=== PATIENT | female | born 1970 | race Caucasian/White ===

== ENCOUNTER 2018-07-11 04:03 | Inpatient (IN) ==
[2018-07-11] MEDS ORDERED: Acetaminophen 325 MG TABLET PO PRN (06:14)
[2018-07-11] MEDS ORDERED: *HR* OxyCODONE Immed Rel 5 MG TABLET PO PRN (06:14)
[2018-07-11] MEDS ORDERED: Naloxone 0.4 MG/ML INJ IVP PRN ×2 (06:14→07:54)
[2018-07-11] MEDS ORDERED: Ondansetron 4 MG/2 ML VIAL IVP PRN (06:21)
--- NOTE | 2018-07-11 06:30 | Internal Med History&Physical ---
<Stan Luque - Last Filed: 07/11/18 06:22> Date of Encounter: 07/11/18 Time of Encounter: 06:22 Internal Medicine - H&P: HPI Chief complaint: Abdominal pain Admitted From: Home Plans for Post Hospital Care: Home History of present illness: Ms. Roberts is a 47 year old female presented with chief complaint of abdominal pain. Patient was transferred from [facility]. Patient states her abdominal pain started 1 week ago and was located in the epigastric region and radiated to her back and laterally. Pain worse with cough and eating. Nothing improved pain. She had associated nausea and vomiting 3 couple days back. She reports her pain progressively worsened with sharp and unbearable especially presented to the ED. She has never had anything like this before. She denies fevers, chills, sick contacts, travel yellowing of skin, changes in stool color , consistency, changes in urine color. At [facility] patient was found to have pancreatitis, underwent CT of the abdomen which showed 2 new lesions in the liver. Patient had a CT abdomen pelvis 2 months ago for abdominal pain and at that time did not have these liver lesions. She was given antinausea, Toradol and IV fluids at [facility] before being transferred. She denies weight gain/ weight loss or history of cancer. She denies family history of cancer. Patient had cholecystectomy 20 years ago. Otherwise she denies any other abdominal surgeries. She is not up-to-date on her cancer screenings including mammograms, Pap smears. Patient's lipase was 893 with normal bilirubin. Alkaline phosphatase the case was 179 AST 50 2A located 70. She is normotensive, nontoxic tachycardic, afebrile. WBC within normal limits. Lactic acid 1.9. CT abdomen findings indicate a 5 cm mass in the right lobe and a 6 cm in the right/medial left lobe with normal bile ducts, normal pancreas. During my encounter patient says her nausea and abdominal pain has resolved. Past Med Surg Social Fam HX - Past Medical History Medical history: arthritis, GERD - Past Surgical History Surgical History: cholecystectomy - Social History Smoking Status: Current every day smoker Packs per day: One pack per day Smokeless Tobacco Status: No Alcohol use: none Drug use: none Occupational status: employed Current living situation: Home - Independent Activity Level: Independent ambulation - Family History Mother Hx Family Cardiac Disorders: Yes Internal Medicine - H&P: Meds No Known Home Drugs 07/11/18 [History] 3 Allergy/AdvReac Type Severity Reaction Status Date / Time Sulfa (Sulfonamide Allergy Severe Difficulty Verified 07/11/18 13:47 Antibiotics) Breathing Penicillins AdvReac Difficulty Verified 07/11/18 13:47 Breathing All Systems PM: A 10-system review of systems was performed and is negative for pertinent findings except as documented above in the HPI. Review of systems: Constitutional: Denies fever, chills HEENT: Denies headache, vision changes, neck pain, sore throat, rhinorrhea Heart: Denies chest pain palpitations Lungs: Denies shortness of breath cough Abdomen: Reports abdominal pain, nausea, vomiting. Denies diarrhea, constipation, change in stool color/consistency Back: Denies back pain Kidney: Reports dysuria, decreased urinary frequency denies hematuria Skin: Denies rash, lesions, jaundice Extremities: Denies swelling, pain Neuro: Denies numbness and tingling - Constitutional Vitals: Temp Pulse Resp BP Pulse Ox 98.5 F 86 16 121/85 95 07/11/18 06:15 07/11/18 06:15 07/11/18 06:15 07/11/18 06:15 07/11/18 06:15 Exam: General: Pleasant without distress HEENT: Head atraumatic, normocephalic, EOMI, PERRL, neck nontender to palpation , absent lymphadenopathy, Moist Mucous Membranes, scleral anicteric Heart: Regular rate and rhythm with no murmur Lungs: Clear to auscultation bilaterally Abdomen: Mild suprapubic tenderness, nondistended positive bowel sounds Skin: warm and dry, absent rash Extremities: Absent pedal edema, Neuro: Cranial nerves II through XII intact, UE and LE sensation equal bilaterally, UE and LEstrength 5/5, alert oriented 3, gait intact Vascular: Pedal and radial pulses 2 out of 4 - Assessment and plan (1) Pancreatitis Status: Acute Assessment and plan: 38-year-old female presented with chief complaint of Abdominal pain and pancreatitis lipase 836 Ct abdomen does not show evidence of pancreatitis but shows two large hepatic masses. she currently does not have abdominal pain or nausea. she is s/p jose a 20 years ago she denies alcohol use Plan: IVF, repeat lipase, amylase, lipid panel. Zofran for nausea. pain control. clear liquid diet. advance diet if tolerating. Qualifiers: Chronicity: acute Pancreatitis type: unspecified pancreatitis type Acute pancreatitis complication: unspecified Qualified Code(s): K85.90 - Acute pancreatitis without necrosis or infection, unspecified (2) Liver lesion Status: Acute Assessment and plan: patient has two hepatic lesions measuring 5m and 6m these were not present 2 months ago when she had ct abdomen pelvis for abdominal pain at [facility] she denies recent travel, sick contacts, weight loss, fever chills, changes in bowel movements. patient is not uptodate on her cancer screening: pap smear or mamogram patient is a smoker she will need further imaging: MRI abdomen, AFP and likely biopsy. (3) Tobacco abuse Status: Acute Assessment and plan: hx of tobacco abuse patient educated on smoking cessation (4) Dysuria Status: Acute Assessment and plan: patient complains of dysuria and urinary frequency reports this feels like UTI will sent urinalysis. she does not meet any sirs critera she has suprapubic pain on exam. - Time Spent With Patient Total time spent is greater than 50% in coordination of care (as documented) at patient's floor/unit and/or counseling patient: <Elle Ridley - Last Filed: 07/14/18 08:21> Date of Encounter: 07/11/18 Internal Medicine - H&P: HPI History of present illness: Ms. Roberts is a 47 year old female All Systems PM: A 10-system review of systems was performed and is negative for pertinent findings except as documented above in the HPI. - Constitutional Vitals: Temp Pulse Resp BP Pulse Ox 98.6 F 77 16 128/81 96 07/13/18 07:21 07/13/18 07:21 07/13/18 07:21 07/13/18 07:21 07/13/18 07:21 Internal Med - H&P Results - Labs CBC & Chem 7: 07/11/18 06:25 07/11/18 06:25 - Impressions ITS Impressions Abdomen MRI 07/11/18 06:55 IMPRESSION: 1. Several scattered circumscribed hepatic lesions largest 7 cm straddling segment 8 and segment 4A followed by 6 cm lesion in segment 6 inferiorly. The rest are several scattered lesions up to 3 cm in size in both right and left lobe more pronounced on the right. Most favored diagnosis is multiple hepatic adenomas. In this non cirrhotic liver the differential of hepatocellular carcinoma is less favored nonetheless six-month follow-up would be advised and additionally correlation with serial alpha-fetoprotein levels now, at 3 months and 6 months at the least is recommended. Adenomas greater than 5 cm at higher risk of degeneration into HCC. If alpha-fetoprotein levels are currently elevated biopsy would be advised. If AFP levels rise before 6 months then earlier imaging,would also be advised. 2. Diffuse hepatic steatosis. D/ / Toño Rodarte MD / Toño Rodarte MD Interpreting Provider: Toño Rodarte MD - Assessment and plan (1) Pancreatitis Status: Acute Qualifiers: Chronicity: acute Pancreatitis type: unspecified pancreatitis type Acute pancreatitis complication: unspecified Qualified Code(s): K85.90 - Acute pancreatitis without necrosis or infection, unspecified (2) Liver lesion Status: Acute (3) Tobacco abuse Status: Chronic - Time Spent With Patient Total time spent is greater than 50% in coordination of care (as documented) at patient's floor/unit and/or counseling patient: - Attending Attestation Patient seen and examined. Case discussed with resident. Agree with assessment and plan. Elevated lipase of over 800 though patient does not present with abdominal pain consistent with acute pancreatitis nor were imaging of the abdomen consistent with acute pancreatitis. However we will continue with aggressive hydration. Liver lesions concerning for malignancy. Requesting GI consult to see the patient.
[2018-07-11 06:42] LABS: Basophils # 0.1 K/mcL (0.0-0.2); Basophils % 0.7 %; Eosinophils # 0.4 K/mcL (0.0-0.6); Eosinophils % 3.8 %; Hematocrit 43.3 % (35.3-44.9); Hemoglobin 14.2 g/dL (11.5-15.4); Immature Granulocytes % 0.7 % (0-4); Lymphocytes # 2.9 K/mcL (0.6-4.6); Mean Corpuscular HGB Conc 32.8 g/dL (31.6-35.5); Mean Corpuscular Hemoglobin 29.8 pg (28.0-33.3); Mean Platelet Volume 11.4 fL (9.4-12.4); Monocytes # 0.6 K/mcL (0.0-1.3); Monocytes % 6.2 %; Neutrophils # 5.7 K/mcL (1.6-8.9); Platelet Count 304 K/mcL (140-400); Red Blood Count 4.76 M/mcL (3.82-4.97); Red Cell Distribution Width 13.5 % (11.5-14.5); Segmented Neutrophils % 58.6 %
[2018-07-11 06:47] LABS: INR 1.1; Prothrombin Time 12.1 Seconds (9.4-12.1)
[2018-07-11] MEDS ORDERED: Gadolinium Contrast Agent (WT Based) IV PRN (06:55)
[2018-07-11] MEDS: 0.9 % Sodium Chloride 1,000 ML IVC SCH ×2 (07:15→14:31)
[2018-07-11] MEDS: *HR* Heparin 5,000 UNIT/ML VIAL SQ SCH ×3 (07:15→20:51)
[2018-07-11 08:10] LABS: Bilirubin,Urine Negative (Negative); Blood,Urine Negative (Negative); Clarity,Urine Clear (Clear); Color,Urine Yellow (Yellow); Glucose,Urine (UA) Normal (Normal); Ketones,Urine Negative (Negative); Leukocyte Esterase,Urine Negative (Negative); Nitrite,Urine Negative (Negative); Protein,Urine 30 mg/dL (Neg-Trace); Specific Gravity,Urine > 1.030 (1.010-1.025); Urobilinogen,Urine Normal (Normal)
[2018-07-11 08:12] LABS: Bacteria,Urine Moderate per hpf (None-Few); Squamous Epithelial Cell,Urine Many per lpf (None-Few); WBC,Urine 50-100 per hpf (0-3)
[2018-07-11 08:22] LABS: Hyaline Casts,Urine None Seen per lpf (None-Few)
--- NOTE | 2018-07-11 09:09 | Internal Med Progress Note ---
<Bill Mcqueen S - Last Filed: 07/11/18 09:06> Hospitalist Progress Note - Encounter Date of Encounter: 07/11/18 Time of Encounter: 09:06 - Subjective Interval History: Ms Roberts is a 47o female with c/o bad pain -[facility] transfer -has been having abd pain 1 wk in duration, epigastric area with radiation to the back and down to her ray area -worse with eating -never has had this before At [facility] found to have pancreatitis -CT scan showed 2 lesions in the liver: 5 cm mass in the right lobe and a 6 cm in the right/medial left lobe with normal bile ducts, normal pancreas. -Lipase 893 -normal bilirubin -Alk phos 179, AST 50, ALT 70 -Lactic acid 1.9 At this time the pt has no complaints. She has mild epigastric pain but no N/V/D , chest pain, SOB. She is tolerating clear liquid diet. - Exam Vitals: Temp Pulse Resp BP Pulse Ox 98.5 F 86 16 121/85 95 07/11/18 06:15 07/11/18 06:15 07/11/18 06:15 07/11/18 06:15 07/11/18 07:15 Exam: General: Pleasant without distress HEENT: Head atraumatic, normocephalic, Heart: Regular rate and rhythm with no murmur Lungs: Clear to auscultation bilaterally Abdomen: Mild epigastric tenderness, nondistended positive bowel sounds, obese Skin: warm and dry, absent rash Extremities: Absent pedal edema, - Assessment and Plan (1) Pancreatitis Current Visit: Yes Status: Acute Assessment and Plan: 38-year-old female presented with chief complaint of abdominal pain and pancreatitis -lipase 836 -CT abdomen findings indicate a 5 cm mass in the right lobe and a 6 cm in the right/medial left lobe with normal bile ducts, normal pancreas Pt denies alcohol abuse -s/p cholecystectomy 20yrs ago -currently no nausea or vomiting at this time Plan: -continue 75cc/hr IV 0.9% NS -repeat lipase and amylase pending -lipid profile pending -zofran prn nausea -clear liquid diet, advance as tolerated -oxycodone 10mg PO q6hr prn pain -MRI for liver lesions (2) Liver lesion Current Visit: Yes Status: Acute Assessment and Plan: CT abdomen findings indicate a 5 cm mass in the right lobe and a 6 cm in the right/medial left lobe with normal bile ducts, normal pancreas -pt has CT 2 mos ago and at that time the lesions weren't present -not up to date on cancer screening --> hasn't had a pap smear in years, can't remember last mammogram -pt is a smoker -no family history of colon cancer Pt denies fevers, chills, weight loss or changes in bowel habits. -Hemoglobin is 14.2, MCV 91 Plan: -MRI abdomen -AFP pending -most likely will need biopsy as an outpatient (3) Tobacco abuse Current Visit: Yes Status: Chronic Assessment and Plan: hx of tobacco abuse patient educated on smoking cessation - Time Spent with Patient Total time spent is greater than 50% in coordination of care (as documented) at patient's floor/unit and/or counseling patient: less than 15 minutes Plan of Care Discussed with: patient Internal Medicine: Result - Labs CBC & Chem 7: 07/11/18 06:25 Labs: Short CBC 07/11/18 Range/Units 06:25 WBC 9.7 (4.3-11.1) K/mcL Hgb 14.2 (11.5-15.4) g/dL Hct 43.3 (35.3-44.9) % Plt Count 304 (140-400) K/mcL Neutrophils # 5.7 (1.6-8.9) K/mcL Urine 07/11/18 Range/Units 08:00 Urine Color Yellow (Yellow) Urine Clarity Clear (Clear) Urine pH 6.0 (5.0-8.0) pH Units Ur Specific [place] > 1.030 H (1.010-1.025) Urine Protein 30 H (Neg-Trace) mg/dL Urine Glucose (UA) Normal (Normal) mg/dL - ABG Interpretation ABG results: PT/INR, D-dimer PT 12.1 Seconds (9.4-12.1) 07/11/18 06:25 Consult Discharge Plan - Plan Referrals: Tyron Almanza MD [Primary Care Provider] - <Donny Anne - Last Filed: 07/11/18 12:32> Hospitalist Progress Note - Encounter Date of Encounter: 07/11/18 - Exam Vitals: Temp Pulse Resp BP Pulse Ox 98.7 F 86 18 169/78 95 07/11/18 12:00 07/11/18 12:00 07/11/18 12:00 07/11/18 12:00 07/11/18 12:00 - Assessment and Plan (1) Pancreatitis Current Visit: Yes Status: Acute (2) Liver lesion Current Visit: Yes Status: Acute (3) Tobacco abuse Current Visit: Yes Status: Chronic - Time Spent with Patient Total time spent is greater than 50% in coordination of care (as documented) at patient's floor/unit and/or counseling patient: Internal Medicine: Result - Labs CBC & Chem 7: 07/11/18 06:25 07/11/18 06:25 Labs: Short CBC 07/11/18 Range/Units 06:25 WBC 9.7 (4.3-11.1) K/mcL Hgb 14.2 (11.5-15.4) g/dL Hct 43.3 (35.3-44.9) % Plt Count 304 (140-400) K/mcL Neutrophils # 5.7 (1.6-8.9) K/mcL BMP 07/11/18 06:25 Sodium 136 Potassium 4.3 Chloride 105 Carbon Dioxide 21 L BUN 12 Creatinine 0.79 Glucose 169 H Calcium 8.8 Liver Function 07/11/18 Range/Units 06:25 Total Bilirubin 0.5 (0.3-1.0) mg/dL Direct Bilirubin 0.1 (0.0-0.2) mg/dL AST 29 (13-39) Units/L ALT 47 (7-52) Units/L Alkaline Phosphatase 139 H (34-104) Units/L Albumin 4.0 (3.5-5.7) g/dL Urine 07/11/18 Range/Units 08:00 Urine Color Yellow (Yellow) Urine Clarity Clear (Clear) Urine pH 6.0 (5.0-8.0) pH Units Ur Specific [place] > 1.030 H (1.010-1.025) Urine Protein 30 H (Neg-Trace) mg/dL Urine Glucose (UA) Normal (Normal) mg/dL - ABG Interpretation ABG results: PT/INR, D-dimer PT 12.1 Seconds (9.4-12.1) 07/11/18 06:25 - Attending Attestation I have seen and examined this patient independently. I have discussed with resident physician Dr. Mcqueen regarding the management plan. Agree with the documentation. <Bill Mcqueen S - Last Filed: 07/11/18 09:06> (1) Pancreatitis Qualifiers: Chronicity: acute Pancreatitis type: unspecified pancreatitis type Acute pancreatitis complication: unspecified Qualified Code(s): K85.90 - Acute pancreatitis without necrosis or infection, unspecified <Donny Anne - Last Filed: 07/11/18 12:32> (1) Pancreatitis Qualifiers: Chronicity: acute Pancreatitis type: unspecified pancreatitis type Acute pancreatitis complication: unspecified Qualified Code(s): K85.90 - Acute pancreatitis without necrosis or infection, unspecified
[2018-07-11 09:19] LABS: Alanine Aminotransferase 47 Units/L (7-52); Albumin/Globulin Ratio 1.3 (1.1-2.2); Alkaline Phosphatase 139 Units/L (34-104); Amylase 52 Units/L (29-103); Aspartate Amino Transferase 29 Units/L (13-39); BUN/Creatinine Ratio 15 (6-26); Bilirubin,Direct 0.1 mg/dL (0.0-0.2); Bilirubin,Indirect 0.4 mg/dL (0.0-1.2); Bilirubin,Total 0.5 mg/dL (0.3-1.0); Blood Urea Nitrogen 12 mg/dL (6-20); Calcium 8.8 mg/dL (8.6-10.3); Carbon Dioxide 21 mEq/L (23-29); Chloride 105 mEq/L (98-107); Chol/HDL Ratio 5.8 (0-4.9); Cholesterol 185 mg/dL (< 200); Globulin 3.1 g/dL (2.4-3.5); Glucose 169 mg/dL (70-105); HDL Cholesterol 32 mg/dL (40-59); LDL Cholesterol,Calculated 122 mg/dL (0-99); Lipase 114 Units/L (11-82); Osmolality,Calculated 286 (280-300); Potassium 4.3 mEq/L (3.5-5.1); Sodium 136 mEq/L (136-145); Total Protein 7.1 g/dL (6.4-8.9); Triglycerides 155 mg/dL (< 150); eGFR For Non-African Americans > 60 (> 60)
--- NOTE | 2018-07-11 15:12 | Gastroenterology Consult Note ---
Date of Encounter: 07/11/18 Time of Encounter: 14:00 - Assessment and plan (1) Pancreatitis Current Visit: Yes Status: Acute Assessment and plan: Patient with acute pancreatitis. Gallbladder is already out no history of drinking. Triglycerides are not elevated. Calcium is normal and also LFTs are within normal limit. Lipase has improved from admission and mostly abdominal pain has resolved. Recommendation: IV fluid. Advance diet as tolerated. IgG4. MR I to rule out CBD stone/other pancreatic or biliary ductal abnormalities as a cause of her pancreatitis. Patient advised strongly against smoking and also no drinking including social drinking Qualifiers: Chronicity: acute Pancreatitis type: unspecified pancreatitis type Acute pancreatitis complication: unspecified Qualified Code(s): K85.90 - Acute pancreatitis without necrosis or infection, unspecified (2) Liver lesion Current Visit: Yes Status: Acute Assessment and plan: CT from [facility] is showing [address] film/disc is available to be reviewed. Patient to get MRI to better define the lesions - Time Spent With Patient Total time spent is greater than 50% in coordination of care (as documented) at patient's floor/unit and/or counseling patient: GI History of Present Illness - Data of Consult Requesting Physician: Elle Ridley MD - Consult Narrative Reason for consult: Acute pancreatitis and abnormal liver imaging History of present illness: Ms. Roberts is a 47 year old female transferred from [facility]. Patient states her abdominal pain started 1 week ago and was located in the epigastric region and radiated to her back and laterally. Pain worse with cough and eating. Nothing improved pain. She had associated nausea and vomiting 3 couple days back. She reports her pain progressively worsened with sharp and unbearable especially presented to the ED. At [facility] patient was found to have pancreatitis, underwent CT of the abdomen which showed 2 new lesions in the liver. Patient had a CT abdomen pelvis 2 months ago for abdominal pain and at that time did not have these liver lesions. Patient had cholecystectomy 20 years ago. Patient's lipase was 893 with normal bilirubin. Alkaline phosphatase the case was 179 AST 50 2A located 70. She is normotensive, nontoxic tachycardic, afebrile. WBC within normal limits. Lactic acid 1.9. CT abdomen findings indicate a 5 cm mass in the right lobe and a 6 cm in the right/medial left lobe with normal bile ducts, normal pancreas. Currently mostly the abdominal pain has resolved. Does admit of smoking 1 pack per day denies any drinking no family history of pancreas issues Past Med Surg Social Fam HX - Past Medical History Medical history: arthritis, GERD Psychiatric history: no psych history - Past Surgical History Surgical History: cholecystectomy - Social History Smoking Status: Current every day smoker Packs per day: One pack per day Smokeless Tobacco Status: No Alcohol use: none Drug use: none - Family History Mother Hx Family Cardiac Disorders: Yes Review of Systems: GI: as per [facility] GENERAL: had some chills EYES: denies yellow discoloration ENT: denies pain with swallowing or difficulty swallowing CARDIO: denies chest pain, palpitations RESP: No Shortness of breath with exertion : denies change in color of urine NEURO: denies any weakness HEME: Denies any bruising MS: Had injection in her back for back pain in the past and does admit of having joint pain especially in both hands on waking in the morning DERM: denies rash or itching PSYCH: Denies history of anxiety or depression - Constitutional Vitals: Temp Pulse Resp BP Pulse Ox 98.7 F 86 18 169/78 95 07/11/18 12:00 07/11/18 12:00 07/11/18 12:00 07/11/18 12:00 07/11/18 12:00 Exam: CONSTITUTIONAL:~alert, no acute distress. Overweight ~HEAD:~normocephalic.~EYES :~no jaundice.~NECK:~no obvious swelling.~HEART:~regular rate and rhythm, no murmurs.~LUNGS:~bilateral good air entry.~ABDOMEN:~non distended, soft, non tander, no masses pulpable, no organomegaly. Old scars of gallbladder surgery ~ RECTAL EXAM:~Deferred.~EXTREMITIES:~no clubbing, cyanosis or edema.~SKIN:~no stigmata of chronic liver disease.~NEUROLOGIC:~no obvious focal defect.~~~~ Results - Labs CBC & Chem 7: 07/11/18 06:25 07/11/18 06:25 Labs: Last Result Calcium 8.8 mg/dL (8.6-10.3) 07/11/18 06:25 Triglycerides 155 mg/dL (< 150) H 07/11/18 06:25 Entire Visit Hgb 14.2 g/dL (11.5-15.4) 07/11/18 06:25 Hct 43.3 % (35.3-44.9) 07/11/18 06:25 PT 12.1 Seconds (9.4-12.1) 07/11/18 06:25 Total Bilirubin 0.5 mg/dL (0.3-1.0) 07/11/18 06:25 AST 29 Units/L (13-39) 07/11/18 06:25 ALT 47 Units/L (7-52) 07/11/18 06:25 Amylase 52 Units/L (29-103) 07/11/18 06:25 Lipase 114 Units/L (11-82) H 07/11/18 06:25 - ABG ABG results: PT/INR, D-dimer PT 12.1 Seconds (9.4-12.1) 07/11/18 06:25 Consult Discharge Plan - Plan Referrals: Tyron Almanza MD [Primary Care Provider] -
[2018-07-11] MEDS: *HR* HYDROcodone/Acet 5/325 mg TABLET PO PRN (20:51)
[2018-07-12] MEDS: *HR* Heparin 5,000 UNIT/ML VIAL SQ SCH ×3 (06:14→21:34)
--- NOTE | 2018-07-12 08:39 | Internal Med Progress Note ---
<Bill Mcqueen S - Last Filed: 07/12/18 11:28> Hospitalist Progress Note - Encounter Date of Encounter: 07/12/18 Time of Encounter: 08:20 - Subjective Interval History: Ms Roberts is a 47o female with c/o abd pain -[facility] transfer -has been having abd pain 1 wk in duration, epigastric area with radiation to the back and down to her ray area -was worse with eating -never has had this before At [facility] found to have pancreatitis -CT scan showed 2 lesions in the liver: 5 cm mass in the right lobe and a 6 cm in the right/medial left lobe with normal bile ducts, normal pancreas. -Lipase 893 -normal bilirubin -Alk phos 179, AST 50, ALT 70 -Lactic acid 1.9 At this time the pt has no complaints. She continues to have mild epigastric pain but no N/V/D, chest pain, SOB. She is tolerating cardiac diet. - Exam Vitals: Temp Pulse Resp BP Pulse Ox 97.6 F 76 16 139/77 98 07/12/18 07:32 07/12/18 07:32 07/12/18 07:32 07/12/18 07:32 07/12/18 07:32 Exam: General: Pleasant without distress HEENT: Head atraumatic, normocephalic, Heart: Regular rate and rhythm with no murmur Lungs: Clear to auscultation bilaterally Abdomen: Mild epigastric tenderness, nondistended positive bowel sounds, obese Skin: warm and dry, absent rash Extremities: Absent pedal edema, - Assessment and Plan (1) Pancreatitis Current Visit: Yes Status: Acute Assessment and Plan: 38-year-old female presented with chief complaint of abdominal pain and pancreatitis -lipase 836 on admission; lipase 114 (07/11/18) ---> 140 (07/12/18) -CT abdomen findings indicate a 5 cm mass in the right lobe and a 6 cm in the right/medial left lobe with normal bile ducts, normal pancreas Pt denies alcohol abuse -s/p cholecystectomy 20yrs ago -currently no nausea or vomiting at this time Lipid profile -TG 155. cholesterol 185, LDL 122, VLDL 31 Plan: -continue 75cc/hr IV 0.9% NS -lipase in morning -zofran prn nausea -cardiac diet as tolerated -oxycodone 10mg PO q6hr prn pain -MRI for liver lesions -IgG4 antibody as per GI pending -complete abdominal ultrasound pending (2) Liver lesion Current Visit: Yes Status: Acute Assessment and Plan: CT abdomen findings indicate a 5 cm mass in the right lobe and a 6 cm in the right/medial left lobe with normal bile ducts, normal pancreas -pt has CT 2 mos ago and at that time the lesions weren't present -not up to date on cancer screening --> hasn't had a pap smear in years, can't remember last mammogram -pt is a smoker -no family history of colon cancer Pt denies fevers, chills, weight loss or changes in bowel habits. -Hemoglobin is 14.2, MCV 91 Plan: -MRI abdomen -IgG4 pending -AFP pending -most likely will need biopsy as an outpatient -complete abdominal ultrasound pending (3) Tobacco abuse Current Visit: Yes Status: Chronic Assessment and Plan: hx of tobacco abuse patient educated on smoking cessation DVT Prophylaxis: SQ heparin 5000u - Time Spent with Patient Total time spent is greater than 50% in coordination of care (as documented) at patient's floor/unit and/or counseling patient: less than 15 minutes Plan of Care Discussed with: patient Internal Medicine: Result - Labs CBC & Chem 7: 07/11/18 06:25 07/11/18 06:25 Labs: BMP 07/11/18 06:25 Sodium 136 Potassium 4.3 Chloride 105 Carbon Dioxide 21 L BUN 12 Creatinine 0.79 Glucose 169 H Calcium 8.8 Liver Function 07/11/18 Range/Units 06:25 Total Bilirubin 0.5 (0.3-1.0) mg/dL Direct Bilirubin 0.1 (0.0-0.2) mg/dL AST 29 (13-39) Units/L ALT 47 (7-52) Units/L Alkaline Phosphatase 139 H (34-104) Units/L Albumin 4.0 (3.5-5.7) g/dL - ABG Interpretation ABG results: PT/INR, D-dimer PT 12.1 Seconds (9.4-12.1) 07/11/18 06:25 Consult Discharge Plan - Plan Referrals: Tyron Almanza MD [Primary Care Provider] - <Donny Anne - Last Filed: 07/12/18 11:50> Hospitalist Progress Note - Encounter Date of Encounter: 07/12/18 - Exam Vitals: Temp Pulse Resp BP Pulse Ox 97.9 F 84 16 138/84 97 07/12/18 11:08 07/12/18 11:08 07/12/18 11:08 07/12/18 11:08 07/12/18 11:08 - Assessment and Plan (1) Pancreatitis Current Visit: Yes Status: Acute (2) Liver lesion Current Visit: Yes Status: Acute (3) Tobacco abuse Current Visit: Yes Status: Chronic - Time Spent with Patient Total time spent is greater than 50% in coordination of care (as documented) at patient's floor/unit and/or counseling patient: Internal Medicine: Result - Labs CBC & Chem 7: 07/11/18 06:25 07/11/18 06:25 - ABG Interpretation ABG results: PT/INR, D-dimer PT 12.1 Seconds (9.4-12.1) 07/11/18 06:25 - Attending Attestation I have seen and examined this patient independently. I have discussed with resident physician Dr. Mcqueen regarding the management plan. Agree with the documentation. <Bill Mcqueen S - Last Filed: 07/12/18 11:28> (1) Pancreatitis Qualifiers: Chronicity: acute Pancreatitis type: unspecified pancreatitis type Acute pancreatitis complication: unspecified Qualified Code(s): K85.90 - Acute pancreatitis without necrosis or infection, unspecified <Donny Anne - Last Filed: 07/12/18 11:50> (1) Pancreatitis Qualifiers: Chronicity: acute Pancreatitis type: unspecified pancreatitis type Acute pancreatitis complication: unspecified Qualified Code(s): K85.90 - Acute pancreatitis without necrosis or infection, unspecified
[2018-07-12] MEDS ORDERED: GADOXETATE DISODIUM 2.5 MMOL/10 ML VIAL IV ONE (14:01)
[2018-07-12] MEDS: *HR* HYDROcodone/Acet 5/325 mg TABLET PO PRN (23:26)
[2018-07-13] MEDS: *HR* Heparin 5,000 UNIT/ML VIAL SQ SCH (05:35)
[2018-07-13 07:22] VITALS: BP 128/81
--- NOTE | 2018-07-13 08:16 | Discharge Summary ---
<Bill Mcqueen S - Last Filed: 07/13/18 09:49> - NOTES TO OUTPATIENT PROVIDER Notes to Outpatient Provider: Follow up on liver lesions in 6mos. Follow up on liver lesions at 3mos and 6mos. Colonoscopy when 48yo, regular mammograms/pap smears Orders not resulted at time of discharge: Pending orders 07/11/18 09:05 AFP Tumor Marker Non- Routine 07/13/18 11:00 US abdomen limited [US] Routine Date of Encounter: 07/13/18 Time of Encounter: 08:14 - Discharge Diagnosis (1) Pancreatitis Priority: Primary Status: Acute Qualifiers: Chronicity: acute Pancreatitis type: unspecified pancreatitis type Acute pancreatitis complication: unspecified Qualified Code(s): K85.90 - Acute pancreatitis without necrosis or infection, unspecified (2) Liver lesion Priority: Secondary Status: Acute (3) Tobacco abuse Priority: Secondary Status: Chronic Hospital course: Ms. Roberts is a 47 year old female who presented with c/o abdominal pain from [facility]. She had been having abd pain 1 wk in duration in the epigastric area w/ radiation to the back and down into her groin area, was worse with eating. This was her first episode. At [facility] was found to have pancreatitis with a lipase of 893. Alk phos 179, AST 50, ALT 70. -CT scan showed 2 lesions in the liver: 5 cm mass in the right lobe and a 6 cm in the right/medial left lobe with normal bile ducts, normal pancreas. On hospital day 2 lipase of 114, day 3 140. Pt is tolerating diet and is able to keep food down w/o N/V. Pt has no complaints of chest pain or SOB. Pt is moving around okay without complaints. MRI for further investigation of liver lesions: 1. Several scattered circumscribed hepatic lesions largest 7 cm straddling segment 8 and segment 4A followed by 6 cm lesion in segment 6 inferiorly. The rest are several scattered lesions up to 3 cm in size in both right and left lobe more pronounced on the right. Most favored diagnosis is multiple hepatic adenomas. In this non cirrhotic liver the differential of hepatocellular carcinoma is less favored nonetheless six-month follow-up would be advised and additionally correlation with serial alpha-fetoprotein levels now , at 3 months and 6 months at the least is recommended. Adenomas greater than 5 cm at higher risk of degeneration into HCC. If alpha-fetoprotein levels are currently elevated biopsy would be advised. If AFP levels rise before 6 months then earlier imaging,would also be advised. 2. Diffuse hepatic steatosis. At this time the pt is stable for discharge. Follow up with PCP advised for review of AFP and plan to monitor. Pt should be advised to have regular cancer screenings, will be due for first colonoscopy in about 2 wks. Also should have mammogram and pap smears as per the guidelines. Discharge discussed with: patient - Time Spent with Patient Total time spent providing and/or coordinating discharge services: Less than 30 minutes - Discharge Medications Home Medications: No Known Home Drugs 07/11/18 [History] Allergies/Adverse Reactions: 3 Allergy/AdvReac Type Severity Reaction Status Date / Time Sulfa (Sulfonamide Allergy Severe Difficulty Verified 07/11/18 13:47 Antibiotics) Breathing Penicillins AdvReac Difficulty Verified 07/11/18 13:47 Breathing Date of admission: 07/11/18 09:22 Primary care physician: Tyron Almanza MD Consults: 07/11/18 07:57 Consult to Gastroenterology [CONS] Routine Consulting Provider: Gastroenterology Jennifer Reason for Consult: Elevated lipase concerning for pancreatitis. Two new findings of 5 and 6 cm lesions involving the liver. Call Completed: No Discharging clinician: Bill Mcqueen Anticipated date of discharge: 07/13/18 - Constitutional Vitals: Temp Pulse Resp BP Pulse Ox 98.6 F 77 16 128/81 96 07/13/18 07:21 07/13/18 07:21 07/13/18 07:21 07/13/18 07:21 07/13/18 07:21 Exam: General: Pleasant without distress HEENT: Head atraumatic, normocephalic, Heart: Regular rate and rhythm with no murmur Lungs: Clear to auscultation bilaterally Abdomen: Mild epigastric tenderness, nondistended positive bowel sounds, obese Skin: warm and dry, absent rash Extremities: Absent pedal edema, - Patient Status Disposition: Home, Self-Care Condition: Good Functional capacity at discharge: independent ambulation Overall status at discharge: patient is back to baseline - Discharge Instructions Instructions: Pancreatitis (DC) Follow Up With: Bill Mcqueen [Resident] - 07/21/18 3:00 pm Rudi Moe MD [Partnered Physician] - (We have requested a follow up appointment with Dr Moe. The office will call you at home with an appointment date and time. ) - Diet and Activity Activity: increase activity as tolerated Diet: advance to your usual diet <Heidy Mesa - Last Filed: 07/13/18 16:10> Orders not resulted at time of discharge: Pending orders 07/11/18 09:05 AFP Tumor Marker Non- Routine Date of Encounter: 07/13/18 - Discharge Diagnosis (1) Pancreatitis Status: Acute Qualifiers: Chronicity: acute Pancreatitis type: unspecified pancreatitis type Acute pancreatitis complication: unspecified Qualified Code(s): K85.90 - Acute pancreatitis without necrosis or infection, unspecified (2) Liver lesion Status: Acute (3) Tobacco abuse Status: Chronic Hospital course: Ms. Roberts is a 47 year old female - Time Spent with Patient Total time spent providing and/or coordinating discharge services: Date of admission: 07/11/18 09:22 Primary care physician: Tyron Almanza MD Consults: 07/11/18 07:57 Consult to Gastroenterology [CONS] Routine Consulting Provider: Gastroenterology Jennifer Reason for Consult: Elevated lipase concerning for pancreatitis. Two new findings of 5 and 6 cm lesions involving the liver. Call Completed: No - Constitutional Vitals: Temp Pulse Resp BP Pulse Ox 98.6 F 77 16 128/81 96 07/13/18 07:21 07/13/18 07:21 07/13/18 07:21 07/13/18 07:21 07/13/18 07:21 - Attending Attestation I examined this patient and my medical decision-making was reviewed with the Resident Physician Dr. Mcqueen. I agree with the documented findings, disposition and treatment plan as described except to the extent set forth below. Ms. Roberts is a 47 year old female who presented towith c/o abdominal pain from [facility]. She had been having abd pain 1 week in duration in the epigastric area w/ radiation to the back and down into her groin area, was worse with eating. At [facility] was found to have pancreatitis with a lipase of 893. CT scan showed 2 lesions in the liver: 5 cm mass in the right lobe and a 6 cm in the right/medial left lobe with normal bile ducts, normal pancreas. MRI of liver showed several scattered lesions up to 3 cm in size in both right and left lobe more pronounced on the right. Recommend out pt f/u with GI and f/u MRI in 6 months. Discussed all these instructions with pt in detail. Gen: A, A, O x 3 Chest: Diminished BS b/l Abd; Soft, NT
== END 2018-07-13 11:10 | disposition home or self-care (01) | DRG 282 ==
LOC: 3BNU → SUATTDRO 09:22
PROVIDERS: ADMIT Internal Medicine; ATTEND Family Medicine

== ENCOUNTER 2018-11-06 19:56 | Inpatient (IN) ==
[2018-11-06] MEDS ORDERED: 0.9 % Sodium Chloride 1,000 ML IVC ONE (20:43)
[2018-11-06] MEDS ORDERED: Ondansetron 4 MG/2 ML VIAL IVP ONE (20:44)
[2018-11-06 21:09] LABS: Basophils % 0.3 %; Eosinophils % 0.6 %; Hematocrit 42.4 % (35.3-44.9); Hemoglobin 14.1 g/dL (11.5-15.4); Immature Granulocytes % 0.3 % (0-4); Lymphocytes % 13.5 %; Mean Corpuscular HGB Conc 33.3 g/dL (31.6-35.5); Mean Corpuscular Hemoglobin 30.4 pg (28.0-33.3); Mean Corpuscular Volume 91.4 fL (83.0-100.0); Mean Platelet Volume 12.1 fL (9.4-12.4); Monocytes # 1.2 K/mcL (0.0-1.3); Monocytes % 15.9 %; Platelet Count 191 K/mcL (140-400); Red Blood Count 4.64 M/mcL (3.82-4.97); Red Cell Distribution Width 16.6 % (11.5-14.5); Segmented Neutrophils % 69.4 %
--- NOTE | 2018-11-06 21:09 | Emergency Department Note ---
Disposition Clinical Impression: UTI (urinary tract infection) Sepsis Qualifiers: Sepsis type: sepsis due to unspecified organism Qualified Code(s): A41.9 - Sepsis, unspecified organism Disposition: Admitted As Inpatient Condition: Undetermined Time of Disposition: 22:34 General Adult HPI - General Chief complaint: ED Fever Stated complaint: fever,head,back,ear pain cancer patient Time Seen by Provider: 11/06/18 20:26 Source: patient Mode of arrival: ambulatory Limitations: no limitations Nursing Notes Reviewed: Yes Vital Signs Reviewed: Yes - History of Present Illness HPI Narrative: 48-year-old female with 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 at the [facility] arrives to the emergency department with concern for fever, cough, chills, nausea, vomiting, diarrhea. The patient states that she has an extensive exposure of family members in the household with similar complaints. The patient decided come to the emergency department. The patient tripped R sepsis criteria as the patient is tachycardic as well as febrile. The patient denies any true abdominal pain other than her baseline right upper quadrant abdominal pain. Patient denies any nuchal rigidity, chest pain, difficulty breathing. She has shivering on evaluation in the room. She denies any other complaints at this time. Pain Scale: 5 - Related Data Home Medications Medication Instructions Recorded Confirmed Capecitabine [Xeloda] 4 tab PO BID 11/07/18 11/07/18 RX: LORazepam [Ativan] 1 mg PO Q6H PRN 11/07/18 11/07/18 RX: Oxycodone HCl 2 tab PO Q6H PRN 11/07/18 11/07/18 Previous Rx's Medication Instructions Recorded Morphine Sulfate SR (12 HR) [MS 1 tab PO BID 30 Days #60 tab 09/10/18 Contin] Prochlorperazine Maleate 10 mg PO Q6HR PRN #30 tablet 09/22/18 [Compazine] RX: Omeprazole 20 mg PO DAILY #30 tab. 09/22/18 Allergies Allergy/AdvReac Type Severity Reaction Status Date / Time Sulfa (Sulfonamide Allergy Severe Difficulty Verified 10/04/18 22:17 Antibiotics) Breathing Penicillins AdvReac Difficulty Verified 10/04/18 22:17 Breathing All systems ED: reviewed and negative except as stated. Constitutional: Reports: fever, chills, weakness ENT ED: Reports: throat pain, congestion. Denies: dental pain, epistaxis, dysphagia Cardiovascular: Denies: chest pain, dyspnea on exertion Respiratory: Reports: cough, sputum production. Denies: dyspnea, wheezes, hemoptysis, stridor Gastrointestinal: Reports: nausea, vomiting, diarrhea. Denies: abdominal pain, constipation, hematemesis, melena, hematochezia Genitourinary: Reports: dysuria, frequency, abnormal menses. Denies: urgency, hematuria Musculoskeletal: Denies: back pain Integumentary: Denies: rash Neurological: Reports: weakness. Denies: headache Past Medical History - Past Medical History Attestation: Yes The following information was validated with the patient. 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 Absent: tenderness, meningismus - Chest Chest inspection: Present: normal inspection - Respiratory Respiratory exam: Present: normal lung sounds bilaterally. Absent: respiratory distress, wheezes, accessory muscle use - Cardiovascular Cardiovascular exam: Present: normal rhythm, tachycardia, normal heart sounds - Abdominal Exam Abdominal exam: Present: soft, tenderness (RUQ, baseline). Absent: distention, guarding, rebound, rigidity - Extremities Exam Extremities exam: Present: normal inspection, full ROM. Absent: tenderness, pedal edema - Neurological Exam Neurological exam: Present: alert, oriented X3, CN II-XII intact, normal gait - Skin Skin exam: Present: warm, dry, intact, normal color Course Vital Signs Temperature 101.1 F H 11/06/18 20:15 Pulse Rate 124 11/06/18 20:15 Respiratory Rate 18 11/06/18 20:15 Blood Pressure 150/112 12/29/18 20:15 O2 Sat by Pulse Oximetry 97 11/06/18 20:15 Temperature 101.1 F H 11/06/18 20:15 Pulse Rate 110 11/06/18 22:06 Respiratory Rate 16 11/06/18 22:06 Blood Pressure 139/84 11/06/18 22:06 O2 Sat by Pulse Oximetry 97 11/06/18 22:06 Oxygen Delivery Oxygen Delivery Room Air Medical Decision Making - MDM Narrative Medical decision making narrative: Patient's workup in the emergency department demonstrates findings concerning for sepsis secondary to likely UTI. The patient was given ciprofloxacin here in the emergency department. She is an allergy she thinks is anaphylaxis to penicillins we will avoid cephalosporins. The patient was made aware that given the Cipro can cause tendinopathy's but she states that she has had a before wit hout issues. The patient was given IV hydration here in the emergency department with mild improvement of tachycardia. The patient was given Zosyn here in the emergency department. Chest x-ray demonstrates no acute process. No other acute changes noted. Patient was made aware and agrees to plan. Accepted by Dr. Kim. - Lab Data Lab results reviewed: Yes I reviewed the patient's lab results. Result diagrams: 11/07/18 00:23 11/07/18 00:23 Lab Results 11/06/18 11/06/18 11/06/18 Range/Units 20:55 20:55 20:55 WBC 7.3 (4.3-11.1) K/mcL RBC 4.64 (3.82-4.97) M/mcL Hgb 14.1 (11.5-15.4) g/dL Hct 42.4 (35.3-44.9) % MCV 91.4 (83.0-100.0) fL MCH 30.4 (28.0-33.3) pg MCHC 33.3 (31.6-35.5) g/dL RDW 16.6 H (11.5-14.5) % Plt Count 191 (140-400) K/mcL MPV 12.1 (9.4-12.4) fL Immature Gran % 0.3 (0-4) % Seg Neutrophils % 69.4 % Lymphocytes % 13.5 % Monocytes % 15.9 % Eosinophils % 0.6 % Basophils % 0.3 % Neutrophils # 5.0 (1.6-8.9) K/mcL Lymphocytes # 1.0 (0.6-4.6) K/mcL Monocytes # 1.2 (0.0-1.3) K/mcL Eosinophils # 0.0 (0.0-0.6) K/mcL Basophils # 0.0 (0.0-0.2) K/mcL Sodium 132 L (136-145) mEq/L Potassium 3.8 (3.5-5.1) mEq/L Chloride 98 (98-107) mEq/L Carbon Dioxide 20 L (23-29) mEq/L BUN 12 (6-20) mg/dL Creatinine 0.86 (0.60-1.20) mg/dL Est GFR ( Amer) > 60 (> 60) Est GFR (Non-Af Amer) > 60 (> 60) BUN/Creatinine Ratio 14 (6-26) Glucose 223 H (70-105) mg/dL Calculated Osmolality 281 (280-300) Lactic Acid 2.3 H (0.5-2.2) mmol/L Calcium 9.4 (8.6-10.3) mg/dL Magnesium 1.6 (1.6-2.6) mg/dL Total Bilirubin 2.3 H (0.3-1.0) mg/dL Direct Bilirubin 0.6 H (0.0-0.2) mg/dL Indirect Bilirubin 1.7 H (0.0-1.2) mg/dL AST 37 (13-39) Units/L ALT 39 (7-52) Units/L Alkaline Phosphatase 209 H (34-104) Units/L Troponin I < 0.03 (< 0.04) ng/mL Serum Total Protein 7.6 (6.4-8.9) g/dL Albumin 4.3 (3.5-5.7) g/dL Globulin 3.3 (2.4-3.5) g/dL Albumin/Globulin Ratio 1.3 (1.1-2.2) Urine Color (Yellow) Urine Clarity (Clear) Urine pH (5.0-8.0) pH Units Ur Specific Blythe (1.010-1.025) Urine Protein (Neg-Trace) mg/dL Urine Glucose (UA) (Normal) mg/dL Urine Ketones (Negative) mg/dL Urine Blood (Negative) Urine Nitrite (Negative) Urine Bilirubin (Negative) Urine Urobilinogen (Normal) mg/dL Ur Leukocyte Esterase (Negative) Urine Microscopic RBC (0-3) per hpf Urine Microscopic WBC (0-3) per hpf Ur Squamous Epith Cells (None-Few) per lpf Urine Bacteria (None-Few) per hpf Hyaline Casts (None-Few) per lpf Ur Culture Indicated? (NO) 11/06/18 Range/Units 21:06 WBC (4.3-11.1) K/mcL RBC (3.82-4.97) M/mcL Hgb (11.5-15.4) g/dL Hct (35.3-44.9) % MCV (83.0-100.0) fL MCH (28.0-33.3) pg MCHC (31.6-35.5) g/dL RDW (11.5-14.5) % Plt Count (140-400) K/mcL MPV (9.4-12.4) fL Immature Gran % (0-4) % Seg Neutrophils % % Lymphocytes % % Monocytes % % Eosinophils % % Basophils % % Neutrophils # (1.6-8.9) K/mcL Lymphocytes # (0.6-4.6) K/mcL Monocytes # (0.0-1.3) K/mcL Eosinophils # (0.0-0.6) K/mcL Basophils # (0.0-0.2) K/mcL Sodium (136-145) mEq/L Potassium (3.5-5.1) mEq/L Chloride (98-107) mEq/L Carbon Dioxide (23-29) mEq/L BUN (6-20) mg/dL Creatinine (0.60-1.20) mg/dL Est GFR ( Amer) (> 60) Est GFR (Non-Af Amer) (> 60) BUN/Creatinine Ratio (6-26) Glucose (70-105) mg/dL Calculated Osmolality (280-300) Lactic Acid (0.5-2.2) mmol/L Calcium (8.6-10.3) mg/dL Magnesium (1.6-2.6) mg/dL Total Bilirubin (0.3-1.0) mg/dL Direct Bilirubin (0.0-0.2) mg/dL Indirect Bilirubin (0.0-1.2) mg/dL AST (13-39) Units/L ALT (7-52) Units/L Alkaline Phosphatase (34-104) Units/L Troponin I (< 0.04) ng/mL Serum Total Protein (6.4-8.9) g/dL Albumin (3.5-5.7) g/dL Globulin (2.4-3.5) g/dL Albumin/Globulin Ratio (1.1-2.2) Urine Color Dark Yellow (Yellow) Urine Clarity Cloudy A (Clear) Urine pH 6.0 (5.0-8.0) pH Units Ur Specific Blythe 1.022 (1.010-1.025) Urine Protein 100 H (Neg-Trace) mg/dL Urine Glucose (UA) 250 H (Normal) mg/dL Urine Ketones Negative (Negative) mg/dL Urine Blood Large H (Negative) Urine Nitrite Negative (Negative) Urine Bilirubin Negative (Negative) Urine Urobilinogen Normal (Normal) mg/dL Ur Leukocyte Esterase Small H (Negative) Urine Microscopic RBC 0-3 (0-3) per hpf Urine Microscopic WBC 30-50 H (0-3) per hpf Ur Squamous Epith Cells Many H (None-Few) per lpf Urine Bacteria Moderate H (None-Few) per hpf Hyaline Casts None Seen (None-Few) per lpf Ur Culture Indicated? NO. A (NO) - Radiology Data Radiology results reviewed: Yes I reviewed the patient's radiology results. Chest X-Ray 11/06/18 20:27 IMPRESSION: Normal portable chest examination. D/ / [facility] George MD / Duc George MD Interpreting Provider: Duc George MD - EKG Data EKG #1 EKG attestation: Yes I reviewed and interpreted this EKG. EKG results narrative: Heart rate 117. Sinus tachycardia. No ST elevation or ST depression noted. Q waves noted in lead 3. No other acute changes noted. Attestation Statement - Attestation Attestation: Resident Attestation: I examined this patient and my medical decision making was reviewed with the Resident Physician. I agree with the documented findings, di sposition and treatment plan as described except to the extent set forth below. We independently had [id number] contact with the patient. Patient history of adenocarcinoma on chemotherapy at [facility] presenting for fever, cough, nausea, vomiting, diarrhea. Multiple exposures within the family with similar complaints. Patient will undergo further evaluation given her significant cancer history. No acute distress, regular rate and rhythm, clear to auscultation bilaterally, abdomen soft mild tenderness to to palpation RUQ without guarding or rebound.
[2018-11-06 21:19] LABS: Bilirubin,Urine Negative (Negative); Blood,Urine Large (Negative); Clarity,Urine Cloudy (Clear); Color,Urine Dark Yellow (Yellow); Glucose,Urine (UA) 250 mg/dL (Normal); Ketones,Urine Negative (Negative); Leukocyte Esterase,Urine Small (Negative); Nitrite,Urine Negative (Negative); Protein,Urine 100 mg/dL (Neg-Trace); Specific Gravity,Urine 1.022 (1.010-1.025); Urobilinogen,Urine Normal (Normal)
[2018-11-06 21:20] LABS: Bacteria,Urine Moderate per hpf (None-Few); Hyaline Casts,Urine None Seen per lpf (None-Few); Squamous Epithelial Cell,Urine Many per lpf (None-Few); WBC,Urine 30-50 per hpf (0-3)
[2018-11-06 21:28] LABS: Troponin I < 0.03 ng/mL (< 0.04)
[2018-11-06 21:29] LABS: Alanine Aminotransferase 39 Units/L (7-52); Albumin 4.3 g/dL (3.5-5.7); Albumin/Globulin Ratio 1.3 (1.1-2.2); Alkaline Phosphatase 209 Units/L (34-104); Aspartate Amino Transferase 37 Units/L (13-39); BUN/Creatinine Ratio 14 (6-26); Bilirubin,Direct 0.6 mg/dL (0.0-0.2); Bilirubin,Indirect 1.7 mg/dL (0.0-1.2); Bilirubin,Total 2.3 mg/dL (0.3-1.0); Blood Urea Nitrogen 12 mg/dL (6-20); Calcium 9.4 mg/dL (8.6-10.3); Carbon Dioxide 20 mEq/L (23-29); Chloride 98 mEq/L (98-107); Globulin 3.3 g/dL (2.4-3.5); Glucose 223 mg/dL (70-105); Magnesium 1.6 mg/dL (1.6-2.6); Osmolality,Calculated 281 (280-300); Potassium 3.8 mEq/L (3.5-5.1); Sodium 132 mEq/L (136-145); Total Protein 7.6 g/dL (6.4-8.9); eGFR For Non-African Americans > 60 (> 60)
[2018-11-06 21:39] LABS: RBC,Urine 0-3 per hpf (0-3)
[2018-11-06] MEDS ORDERED: Ibuprofen 600 MG TABLET PO ONE (21:42)
--- NOTE | 2018-11-07 01:22 | Internal Med History&Physical ---
Date of Encounter: 11/07/18 Time of Encounter: 01:21 Internal Medicine - H&P: HPI Chief complaint: Nausea, vomiting, fever Admitted From: Emergency Dept Plans for Post Hospital Care: Home History of present illness: Ms. 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 She states that she turns proximally 5 episodes of emesis was clear with no evidence of blood. Also admits to loose stools 5-6 episodes without any evidence of blood or foul smells. Also admits to nausea and that time as well as subjective fevers. She states that family around her has been experiencing sinus infections and she thought she caught one of these as well. She does admit to some sinus pressure as well as productive cough with thick yellow sputum. Also admits to dysuria, urinary frequency without urgency or hematuria. She does follow with the [facility] and takes chemotherapy daily. Her most recent oncology appointment was Thursday when she had a reaction to her intravenous chemotherapy involving shortness of breath and requiring epinephr ine. On arrival to the emergency room, will signs were significant for temperature 101.1, pulse 124, respiratory rate 18, pressure 150/112 and tolerating 97% on room air. Labs significant for no leukocytosis at 7.3, sodium 132, bicarbonate 20, lactic acid 2.3 which trended to 1.3. Total bilirubin was mildly elevated 2.3 and alkaline phosphatase 209. Urinalysis was also obtained which showed pr otein, glucose, large monitor blood, small leukocyte esterase, 30-50 white blood cells with many squamous epithelial cells and moderate bacteria. She was started on Cipro in the emergency department due to allergies to sulfa and penicillin. She states that these allergies are anaphylaxis. Chest x-ray was also obtained which showed no acute process. Past medical history as above Past surgical history includes cholecystectomy, cyst removal Social history: Former smoker quitting August, denies alcohol or drug use Past Med Surg Social Fam HX - Past Medical History Medical history: arthritis, cancer, GERD, other Additional medical history: pre cancer cell removed, Liver/esophgel cancer. Psychiatric history: no psych history - Past Surgical History Surgical History: cholecystectomy Additional surgical history: diagnostic laporoscopy, ganglion cyst right wrist - Social History Smoking Status: Former smoker Smokeless Tobacco Status: No Alcohol use: none Drug use: none - Family History Mother Hx Family Cardiac Disorders: Yes Internal Medicine - H&P: Meds Morphine Sulfate SR (12 HR) [MS Contin] 1 tab PO BID 30 Days #60 tab 09/10/18 [Rx] Magic Mouthwash 5 ml PO Q4H PRN #240 ml 09/22/18 [Rx] Omeprazole 20 mg PO DAILY #30 tab.rap. 09/22/18 [Rx] Ondansetron ODT [Zofran ODT] 4 mg SL Q6HR #20 tab.rapdis 09/22/18 [Rx] Prochlorperazine Maleate [Compazine] 10 mg PO Q6HR PRN #30 tablet 09/22/18 [Rx] HydrOXYzine Pamoate [Vistaril] 50 mg PO BID #30 capsule 10/05/18 [Rx] Ondansetron HCl 4 mg PO Q6H #30 tablet 10/05/18 [Rx] Capecitabine [Xeloda] 4 tab PO BID 11/07/18 [History] Oxycodone HCl 2 tab PO Q6H PRN 11/07/18 [History] Allergy/AdvReac Type Severity Reaction Status Date / Time Sulfa (Sulfonamide Allergy Severe Difficulty Verified 10/04/18 22:17 Antibiotics) Breathing Penicillins AdvReac Difficulty Verified 10/04/18 22:17 Breathing All Systems PM: A 10-system review of systems was performed and is negative for pertinent findings except as documented above in the HPI. Review of systems: - Constitutional: Admits to fevers Denies chills, weight loss, generalized fatigue - Head/Neck: Denies GOVEA, neck stiffness - EENT: Admits to sinus pressure, postnasal drip. Denies vision changes/blurr iness, rhinorrhea, congestion, sore throat, odynaphagia - CVS: Denies chest pain, palpitations, JACKSON, orthopnea, edema, PND, - Pulm: Admits to productive cough, sputum. Denies SOB, hematemesis, wheezing - GI: Admits to nausea, vomiting, diarrhea. Denies abdominal pain, anorexia, constipation, melena - : Admits to dysuria, frequency. Denies urgency, hematuria, - Skin: Denies rashes, ulcers, color changes, - Neuro: Denies GOVEA, paresthesias, focal deficits, ataxia, - Constitutional Vitals: Temp Pulse Resp BP Pulse Ox 99.3 F 98 18 102/69 97 11/07/18 00:04 11/07/18 00:04 11/07/18 00:04 11/07/18 00:04 11/07/18 00:04 Exam: Gen.: Vitals noted. No acute distress. AAOx3, resting comfortably in bed. Obese HEENT: PERRL/EOMI, oropharynx clear, Normocephalic, atraumatic, MMM Cardiac: RRR, no murmur, +S1/S2, No BLE edema Pulmonary: CTA bilaterally, no wheezes, rales or rhonchi, equal chest expansion, unlabored breathing Abdomen: soft, diffuse mild tenderness, BS noted, no guarding, no palpable HSM Skin: warm and dry, no visible lesions. MSK: ROM not assessed, no joint swelling noted, gait no assessed while in bed. Non tender calf or clubbing Neuro: A&Ox3, moves all extremities, no focal deficits, sensation intact Psych: Appropriate mood and behavior, AOx3 Internal Med - H&P Results - Labs CBC & Chem 7: 11/06/18 20:55 11/06/18 20:55 Labs: Short CBC 11/06/18 Range/Units 20:55 WBC 7.3 (4.3-11.1) K/mcL Hgb 14.1 (11.5-15.4) g/dL Hct 42.4 (35.3-44.9) % Plt Count 191 (140-400) K/mcL Neutrophils # 5.0 (1.6-8.9) K/mcL BMP 11/06/18 20:55 Sodium 132 L Potassium 3.8 Chloride 98 Carbon Dioxide 20 L BUN 12 Creatinine 0.86 Glucose 223 H Calcium 9.4 Cardiac Enzymes 11/06/18 Range/Units 20:55 Troponin I < 0.03 (< 0.04) ng/mL Liver Function 11/06/18 Range/Units 20:55 Total Bilirubin 2.3 H (0.3-1.0) mg/dL Direct Bilirubin 0.6 H (0.0-0.2) mg/dL AST 37 (13-39) Units/L ALT 39 (7-52) Units/L Alkaline Phosphatase 209 H (34-104) Units/L Albumin 4.3 (3.5-5.7) g/dL Urine 11/06/18 Range/Units 21:06 Urine Color Dark Yellow (Yellow) Urine Clarity Cloudy A (Clear) Urine pH 6.0 (5.0-8.0) pH Units Ur Specific [place] 1.022 (1.010-1.025) Urine Protein 100 H (Neg-Trace) mg/dL Urine Glucose (UA) 250 H (Normal) mg/dL - Impressions ITS Impressions Chest X-Ray 11/06/18 20:27 IMPRESSION: Normal portable chest examination. D/ / [facility] George MD / [facility] George MD Interpreting Provider: [facility] George MD - Assessment and plan (1) Severe sepsis Current Visit: Yes Status: Acute Assessment and plan: - Meets 2/4 sirs criteria with fever, tachycardia - Lactate initially elevated at 2.3 which is now down trended to 1.3 - Source this time is unclear, may be UTI versus GI - Clinically, patient has multiple foci and symptomatology - No evidence of leukocytosis - Urinalysis appears contaminated but does have moderate bacteria and leukocyte esterase - Blood cultures and urine cultures obtained in the emergency department - Chest x-ray negative for acute process Plan - Start Cipro, Flagyl, day #1. - We will have her both GI and urine pathogens - Patient is allergic to sulfa, penicillins. Reported allergies anaphylaxis - We will also give another liter bolus and reassess per sepsis protocol. (2) UTI (urinary tract infection) Current Visit: Yes Status: Suspected Assessment and plan: - As above for severe sepsis Qualifiers: Urinary tract infection type: acute cystitis Hematuria presence: without hematuria Qualified Code(s): N30.00 - Acute cystitis without hematuria (3) GE junction carcinoma Current Visit: Yes Status: Chronic Assessment and plan: - Known history on chemotherapy - We will continue chemotherapy while inpatient - Further management per oncologist once discharged (4) Gastroenteritis Current Visit: Yes Status: Acute Assessment and plan: - As above for severe sepsis - May also be a result of chemotherapy however patient reports that this is new onset - Symptomatically treatment as above - Patient denies recent antibiotic use, recent travel. - If no improvement, consider GI panel versus C. difficile toxin (5) DVT prophylaxis Current Visit: Yes Status: Acute Assessment and plan: Lovenox - Time Spent With Patient Total time spent is greater than 50% in coordination of care (as documented) at patient's floor/unit and/or counseling patient:
[2018-11-07] MEDS ORDERED: Naloxone 0.4 MG/ML INJ IVP PRN (02:15)
[2018-11-07] MEDS ORDERED: 0.9 % Sodium Chloride 1,000 ML IVC ONE (02:15)
[2018-11-07] MEDS ORDERED: *HR* OxyCODONE Immed Rel 5 MG TABLET PO PRN (02:16)
[2018-11-07] MEDS ORDERED: *HR* Dextrose 50 % in Water (Syg) 50 ML SYRINGE IVP PRN (02:29)
[2018-11-07] MEDS ORDERED: D5% in Water 1,000 ML IVC PRN (02:29)
[2018-11-07] MEDS ORDERED: Dextrose Gel 15 GM/37.5 ML TUBE PO PRN ×2 (02:29)
[2018-11-07 03:06] LABS: Basophils % 0.3 %; Eosinophils % 0.5 %; Hematocrit 37.9 % (35.3-44.9); Immature Granulocytes % 0.5 % (0-4); Lymphocytes % 18.9 %; Mean Corpuscular Hemoglobin 30.6 pg (28.0-33.3); Mean Corpuscular Volume 92.7 fL (83.0-100.0); Mean Platelet Volume 12.5 fL (9.4-12.4); Monocytes # 1.3 K/mcL (0.0-1.3); Monocytes % 19.1 %; Platelet Count 169 K/mcL (140-400); Red Blood Count 4.09 M/mcL (3.82-4.97); Red Cell Distribution Width 16.3 % (11.5-14.5); Segmented Neutrophils % 60.7 %
[2018-11-07 03:07] LABS: Hemoglobin 12.5 g/dL (11.5-15.4); Lymphocytes # 1.3 K/mcL (0.6-4.6)
[2018-11-07 03:13] LABS: BUN/Creatinine Ratio 14 (6-26); Blood Urea Nitrogen 12 mg/dL (6-20); Calcium 8.6 mg/dL (8.6-10.3); Carbon Dioxide 20 mEq/L (23-29); Chloride 102 mEq/L (98-107); Glucose 212 mg/dL (70-105); Osmolality,Calculated 284 (280-300); Potassium 3.6 mEq/L (3.5-5.1); Sodium 134 mEq/L (136-145); eGFR For Non-African Americans > 60 (> 60)
[2018-11-07] MEDS ORDERED: Melatonin 3 MG TABLET PO STA (03:13)
[2018-11-07 03:37] LABS: Platelet Estimate Normal (Normal)
[2018-11-07] MEDS: *HR* Enoxaparin 30 MG/0.3 ML SYRINGE SQ SCH (06:04)
[2018-11-07] MEDS: Ondansetron ODT 4 MG TAB.RAPDIS SL SCH ×3 (06:04→17:57)
--- NOTE | 2018-11-07 08:42 | Event Note ---
Date of Encounter: 11/07/18 Time of Encounter: 08:16 Came with cough x3 days, buring urination x6 days, diarrhea and vomiting x4 days. Fever and chills, NO sob or chest pain. has RLQ,RUQ and epigastric pain. Exam General: In no acute distress. Conversant. Obese. Respiratory exam: CTAB. no accessory muscle use, rales, rhonchi, wheezes Cardiovascular exam: tachycardia, +S1, +S2. no murmur, gallop, rubs. GI/Abdominal exam: mild epigastric, RUQ, RLQ tendernss. Non-distended, normal bowel sounds, soft, no peritoneal signs. Extremities exam: full ROM, no pedal edema, warm, pulses palpable in b/l lower extremities. no calf tenderness Neurological exam: CN II-XII intact, AO X3, no focal deficits. no pronater drift, facial droop, speech deficit Skin exam: No skin rash, ulcer, purpura or ecchymosis. A/P Sepsis - 2/4 sirs fever, tachycardia on admission - Urine vs UTI suspected source. No urinary complains. - Lactate 2.3 - now down trended to 1.3 - No leukocytosis - Urinalysis with poor sample. Repeat UA - f/u Blood and urine cultures. - Chest x-ray unremarkable. With some cough and sick contacts with URI. Obtain RIP. - c/w Start Cipro, Flagyl, day #1. - s/p 2 Lit NS. c/w IVF. Gastroenteritis - May also be a result of chemotherapy - no recent antibiotic use - Low threshold to get GI panel if worsen and start vancomycin. Adenocarcinoma - On chemotherapy DVT prophylaxis - c/w Lovenox
[2018-11-07] MEDS ORDERED: CAPECITABINE PO SCH (09:00)
[2018-11-07] MEDS: Insulin LISPRO 300 UNITS/3 ML VIAL SQ SCH ×4 (10:16→21:55)
[2018-11-07] MEDS: *HR* Morphine Sulfate SR (12 HR) 15 MG TABLET.ER PO SCH ×2 (10:16→22:00)
[2018-11-07] MEDS: hydrOXYzine pamoate 25 MG CAPSULE PO SCH ×2 (10:16→22:00)
[2018-11-07] MEDS: MetroNIDAZOLE 500 MG/100 ML 500 MG/100 ML BAG IVPB SCH ×3 (11:29→23:37)
[2018-11-07] MEDS: Ringers Solution, Lactated 1,000 ML IVC SCH ×2 (11:30→23:36)
[2018-11-07 12:09] LABS: Bilirubin,Urine Negative (Negative); Blood,Urine Small (Negative); Clarity,Urine Clear (Clear); Color,Urine Dark Yellow (Yellow); Glucose,Urine (UA) >=1000 mg/dL (Normal); Ketones,Urine Negative (Negative); Leukocyte Esterase,Urine Negative (Negative); Nitrite,Urine Negative (Negative); Protein,Urine 30 mg/dL (Neg-Trace); Specific Gravity,Urine 1.022 (1.010-1.025)
[2018-11-07 12:11] LABS: Bacteria,Urine Few per hpf (None-Few); Hyaline Casts,Urine None Seen per lpf (None-Few); RBC,Urine 0-3 per hpf (0-3); Squamous Epithelial Cell,Urine Many per lpf (None-Few)
[2018-11-07] MEDS: Acetaminophen 325 MG TABLET PO PRN (17:56)
[2018-11-08] MEDS: Ondansetron ODT 4 MG TAB.RAPDIS SL SCH ×4 (00:43→17:21)
[2018-11-08] MEDS ORDERED: CAPECITABINE PO ONE (02:00)
[2018-11-08] MEDS: Acetaminophen 325 MG TABLET PO PRN ×2 (03:00→11:43)
[2018-11-08] MEDS: *HR* Enoxaparin 30 MG/0.3 ML SYRINGE SQ SCH (06:44)
[2018-11-08] MEDS: hydrOXYzine pamoate 25 MG CAPSULE PO SCH ×2 (08:38→21:00)
[2018-11-08] MEDS: *HR* Morphine Sulfate SR (12 HR) 15 MG TABLET.ER PO SCH ×2 (08:39→21:00)
[2018-11-08] MEDS: MetroNIDAZOLE 500 MG/100 ML 500 MG/100 ML BAG IVPB SCH ×2 (08:39→17:21)
[2018-11-08] MEDS: Insulin LISPRO 300 UNITS/3 ML VIAL SQ SCH ×4 (08:43→20:59)
[2018-11-08] MEDS ORDERED: *HR* OxyCODONE Immed Rel 5 MG TABLET PO PRN (09:30)
[2018-11-08] MEDS: CAPECITABINE 500 MG PO SCH (11:45)
[2018-11-08] MEDS ORDERED: CAPECITABINE PO SCH (12:00)
--- NOTE | 2018-11-08 13:06 | Infectious Disease Consult ---
Date of Encounter: 11/08/18 Time of Encounter: 12:57 Assessment and Plan (1) Severe sepsis Status: Acute Assessment and plan: Had 3 SIRS criteria and lactic acidosis admission Appears to be secondary to URI symptoms but intra-abdominal process cannot be r uled out especially with history of pancreatitis We will check breast infectious panel, will also check CT abdomen pelvis and lipase amylase and LFTs. I would DC ciprofloxacin and start levofloxacin in combination with the Flagyl and levofloxacin has better penetration into the upper respiratory tract (2) Viral syndrome Status: Acute Assessment and plan: On admission rhinorrhea, sore throat, earache, pleuritic chest pain and cough Flu antigen negative but the test is only about 50% sensitive Check respiratory infectious panel If no improvement we might need to do a CT head to see if the patient has chronic sinusitis or mastoiditis or other (3) Abdominal pain Status: Acute Assessment and plan: Patient has elevated LFTs and right upper and lower quadrant pain Associated nausea and vomiting Patient does not have a gallbladder but had history of pancreatitis in the past Recommend CT abdomen and pelvis with oral contrast, LFTs, lipase and amylase Okay to continue with Cipro and Flagyl for now Qualifiers: Abdominal location: unspecified location Qualified Code(s): R10.9 - Unspecified abdominal pain (4) Allergy to multiple antibiotics Status: Acute Assessment and plan: Penicillin: Had the reaction about 85 years ago with difficulty breathing. Recently has taken Augmentin for a foot wound infection and to tolerate the A ugmentin just fine Bactrim trouble breathing about 10 years ago If needed I believe patient should do okay with cephalosporins (5) GE junction carcinoma Status: Chronic Infectious Disease HPI - Data of Consult Patient: new to practice Consult date: 11/08/18 Requesting Physician: Geraldo Palmer DO Primary Care Provider: PCP NONE - Consult Narrative Reason for consult: "fevers,N/V/D, on chemotherapy History of present illness: Ms. Roberts is a 48 year old female Patient is a 48-year-old woman with past medical history mentioned below present ing to [place] on 11/06/2018 with fever and admitted for urinary tract infection, we are consulted 11/08/2018 for persistent fever. Patient is a 48-year-old woman who was recently diagnosed in August with adenocarcinoma at the GE junction being followed at the [facility] has received 2 sessions of chemotherapy. The first one was about 3 weeks prior and the second one was the Thursday prior to admission. Patient tells me that she lives in [place] with her daughter. No animals at home no grandchildren. Patient is not currently working. Patient states that she was in the usual state of health un til Thursday when she was having the chemotherapy drip. After that her voice changed and she was not feeling well at all. Patient was sent to the emergency department at [facility] for possible anaphylaxis or allergic reaction to the chemotherapy. Patient was discharged home. Patient then tells me she is having a runny nose. The sore throat. A right earache and pain and pressure in the right face she thought she was having a stroke. Patient also states that she was having cough with krueger sputum production and pleuritic chest pain. Patient was also having nausea and vomiting and diarrhea and was having fevers and chills at home. On further questioning patient tells me that she still does not have her gallbladder removed about 18 years ago. No other major surgeries. Patient did admit to having pancreatitis in the past. When asked about her allergic reaction to penicillin and Bactrim. With the Bactrim she said she could not breathe and that happened about 10 years ago and penicillin she states it was about 30-40 years ago when she had a severe allergic reaction and she could not breathe. Patient tells me that she recently had a foot infection and was given Augmentin and she tolerated it just fine. Since admission, patient has been febrile with a MAXIMUM TEMPERATURE of 101.3 Fahrenheit, tachycardic without tachypnea. Presenting labs revealed a WBC of 7. 3 with 69% neutrophils no bands. Chemistry revealed a BUN of 12 creatinine 0.86 and a lactic acid of 2.3. Patient was also noted to have elevated total bilirubin of 2.3 direct 0.6 and direct 1.7 and elevated alkaline phosphatase at 209. A urinalysis was done which is good is contaminated and showed pyuria with many squamous epithelial cells. Blood cultures were obtained 11/06/2018 2 out of 2 sets no growth to date. Influenza a and B antigen was negative. Urine culture was no growth. Patient had a chest x-ray which reveals normal portable chest x-ray. Patient apparently has severe allergies to penicillin and sulfa so was started on ciprofloxacin and Flagyl. Patient continued to be febrile so we were asked to evaluate the patient and make further recommendations. CC: Geraldo Palmer, DO Past Med Surg Social Fam HX - Past Medical History Medical history: arthritis, cancer, GERD, other Additional medical history: pre cancer cell removed, Liver/esophgel cancer. Psychiatric history: no psych history - Past Surgical History Surgical History: cholecystectomy Additional surgical history: diagnostic laporoscopy, ganglion cyst right wrist - Social History Smoking Status: Former smoker Smokeless Tobacco Status: No Alcohol use: none Drug use: none - Family History Mother Hx Family Cardiac Disorders: Yes Infectious Disease-CN:Meds Morphine Sulfate SR (12 HR) [MS Contin] 1 tab PO BID 30 Days #60 tab 09/10/18 [Rx] Prochlorperazine Maleate [Compazine] 10 mg PO Q6HR PRN #30 tablet 09/22/18 [Rx] RX: Omeprazole 20 mg PO DAILY #30 tab.rap.dr 09/22/18 [Rx] Capecitabine [Xeloda] 4 tab PO BID 11/07/18 [History] RX: LORazepam [Ativan] 1 mg PO Q6H PRN 11/07/18 [History] RX: Oxycodone HCl 2 tab PO Q6H PRN 11/07/18 [History] Allergy/AdvReac Type Severity Reaction Status Date / Time Sulfa (Sulfonamide Allergy Severe Difficulty Verified 10/04/18 22:17 Antibiotics) Breathing Penicillins AdvReac Difficulty Verified 10/04/18 22:17 Breathing Review of systems: 10 point review of systems done, negative other for what mentioned in history of present illness Exam - Constitutional Vitals: Temp Pulse Resp BP Pulse Ox 101.3 F H 93 16 123/80 97 11/08/18 10:40 11/08/18 10:40 11/08/18 10:40 11/08/18 10:40 11/08/18 10:40 General appearance: febrile, cooperative, disheveled - Head Head exam: Present: atraumatic, normal inspection, normocephalic - Eye Eye exam: Present: EOMI, PERRL, sclera anicteric - ENT Additional comments: Dry oral mucosa. Patient has no dentition. Throat mildly erythematosus without plaques or lesions - Neck Neck exam: Present: full ROM. Absent: meningismus - Respiratory Respiratory exam: Present: CTAB, wheezes. Absent: rhonchi - Cardiovascular Cardiovascular exam: Present: RRR, +S1, +S2 - GI/Abdominal GI/Abdominal exam: Present: normal bowel sounds, soft, tenderness Additional comments: Right upper quadrant and right lower quadrant. Negative Laura sign - Extremities Exam Extremities exam: Present: normal inspection. Absent: pedal edema - Back Exam Back exam: Absent: CVA tenderness (L), CVA tenderness (R) - Neurological Exam Neurological exam: Present: alert, oriented X3. Absent: speech deficit - Psychiatric Psychiatric exam: Present: normal affect, normal mood - Skin Skin exam: Present: normal color. Absent: rash Infectious Disease CN: Results - Labs CBC & Chem 7: 11/07/18 00:23 11/07/18 00:23 Cultures: Cultures 11/07/18 11:30 Urine Culture - Final Urine,Clean Catch No growth. 11/06/18 21:48 Blood Culture - Preliminary Peripheral Venipuncture Culture is incubating and being continuously monitored for growth. Final report to follow. 11/06/18 21:44 Influenza Types A,B Antigen - Final Nasopharyngeal 11/06/18 20:52 Blood Culture - Preliminary Peripheral Venipuncture Culture is incubating and being continuously monitored for growth. Final report to follow. Serology: Serology 11/07/18 11/06/18 Range/Units 11:30 21:06 Urine Color Dark Yellow Dark Yellow (Yellow) Urine Clarity Clear Cloudy A (Clear) Urine pH 6.0 6.0 (5.0-8.0) pH Units Ur Specific [place] 1.022 1.022 (1.010-1.025) Urine Protein 30 H 100 H (Neg-Trace) mg/dL Urine Glucose (UA) >=1000 H 250 H (Normal) mg/dL Urine Ketones Negative Negative (Negative) mg/dL Urine Blood Small H Large H (Negative) Urine Nitrite Negative Negative (Negative) Urine Bilirubin Negative Negative (Negative) Urine Urobilinogen 2.0 H Normal (Normal) mg/dL Ur Leukocyte Esterase Negative Small H (Negative) Urine Microscopic RBC 0-3 0-3 (0-3) per hpf Urine Microscopic WBC 5-15 H 30-50 H (0-3) per hpf Ur Squamous Epith Cells Many H Many H (None-Few) per lpf Urine Bacteria Few Moderate H (None-Few) per hpf Hyaline Casts None Seen None Seen (None-Few) per lpf Ur Culture Indicated? NO NO. A (NO) Consult Discharge Plan - Plan Referrals: NONE,PCP [Primary Care Provider] -
--- NOTE | 2018-11-08 13:12 | Internal Med Progress Note ---
<Saúl Sol - Last Filed: 11/08/18 13:21> Hospitalist Progress Note - Encounter Date of Encounter: 11/08/18 Time of Encounter: 13:11 - Subjective Interval History: Ms. 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 She states that family around her has been experiencing sinus infections and she thought she caught one of these as well. She does admit to some sinus pressure as well as productive cough with thick yellow sputum. Also admits to dysuria, urinary frequency without urgency or hematuria. She does follow with the [facility] and takes chemotherapy daily. Her most recent oncology appointment was Thursday when she had a reaction to her intravenous chemotherapy involving shortness of breath and requiring epinephr ine. On arrival to the emergency room, temperature 101.1, pulse 124, respiratory rate 18, pressure 150/112 and tolerating 97% on room air. Labs significant for no leukocytosis at 7.3, sodium 132, bicarbonate 20, lactic acid 2.3 which trended to 1.3. Total bilirubin was mildly elevated 2.3 and alkaline phosphatase 209. Urinalysis was also obtained which showed protein, glucose, large monitor blood, small leukocyte esterase, 30-50 white blood cells with many squamous epithelial cells and moderate bacteria. She was started on Cipro in the emergency department due to allergies to sulfa and penicillin. She states that these allergies are anaphylaxis. Chest x-ray was also obtained which showed no acute process. Repeat urinalysis shows no nitrites or leukocyte esterase. WBC count is 6.6. Patient continues to be febrile into the 101 range, which has been controlled with tylenol. Upon initial evaluation this AM, patient was sitting upright in bed. Patient admits to sinus congestion/pressure, and cough productive of brown sputum, which the patient states is coming from her nasal passages. Patient states that she feels better and denies headache, vision change, tinnitus, CP/SOB, abd. pain, N/V/D, or difficulty ambulating or paresthesias. - Exam Vitals: Temp Pulse Resp BP Pulse Ox 101.3 F H 93 16 123/80 97 11/08/18 10:40 11/08/18 10:40 11/08/18 10:40 11/08/18 10:40 11/08/18 10:40 Exam: Gen.: Vitals noted. No acute distress. AAOx3, resting comfortably in bed. Obese HEENT: PERRL/EOMI, oropharynx clear, Normocephalic, atraumatic, Cardiac: RRR, no murmur, +S1/S2, No BLE edema Pulmonary: RIGHT sided wheeze noted, otherwise clear Abdomen: soft, diffuse mild tenderness to palpation, BS noted, no guarding Skin: warm and dry, no visible lesions. MSK: ROM not assessed, no joint swelling noted, gait not assessed while in bed. Neuro: A&Ox3, moves all extremities, no focal deficits, pulse, motor and sensation intact Psych: Appropriate mood and behavior, AOx3 - Summary of Assessment and Plan Summary of Assessment and Plan: (1) Severe sepsis Current Visit: Yes Status: Acute Assessment and plan: - Patient continue to be febrile into the 101 range - well controlled with tylenol - Patient non-tachycardic, non-tachypnic, WBC normal - Lactate initially elevated at 2.3 which is now down trended to 1.3 - Source this time is unclear, may be UTI versus GI - Clinically, patient has multiple foci and symptomatology - Initial Urinalysis appears contaminated repeat shows no nitrites or leukocyte esterase - Blood cultures and urine cultures obtained in the emergency department: Urine cx negative, Blood cx are PENDING - Chest x-ray negative for acute process - Influenza antigen negative -ID consulted and is following - consultation greatly appreciated! Plan - Patient is allergic to sulfa, penicillins. Reported allergies anaphylaxis - Continue Cipro, Flagyl, day #2. - Will order Resp. panel. - IVF PRN (2) UTI (urinary tract infection) Current Visit: Yes Status: Suspected Assessment and plan: - As above for severe sepsis Qualifiers: Urinary tract infection type: acute cystitis Hematuria presence: without hematuria Qualified Code(s): N30.00 - Acute cystitis without hematuria (3) GE junction carcinoma Current Visit: Yes Status: Chronic Assessment and plan: - Known history on chemotherapy - We will continue chemotherapy while inpatient - Further management per oncologist once discharged (4) Gastroenteritis Current Visit: Yes Status: Acute Assessment and plan: - As above for severe sepsis - May also be a result of chemotherapy however patient reports that this is new onset - Symptomatically treatment as above - Patient denies recent antibiotic use, recent travel. - If no improvement, consider GI panel versus C. difficile toxin (5) DVT prophylaxis Current Visit: Yes Status: Acute Assessment and plan: Lovenox - Time Spent with Patient Total time spent is greater than 50% in coordination of care (as documented) at patient's floor/unit and/or counseling patient: Internal Medicine: Result - Labs CBC & Chem 7: 11/07/18 00:23 11/07/18 00:23 Consult Discharge Plan - Plan Referrals: NONE,PCP [Primary Care Provider] - <Geraldo Palmer - Last Filed: 11/08/18 15:49> Hospitalist Progress Note - Encounter Date of Encounter: 11/08/18 - Exam Vitals: Temp Pulse Resp BP Pulse Ox 99.2 F 93 16 123/80 97 11/08/18 13:44 11/08/18 10:40 11/08/18 10:40 11/08/18 10:40 11/08/18 10:40 - Assessment and Plan (1) Severe sepsis Current Visit: Yes Status: Acute (2) Viral syndrome Current Visit: Yes Status: Acute (3) GE junction carcinoma Current Visit: Yes Status: Chronic (4) Gastroenteritis Current Visit: Yes Status: Acute (5) Abdominal pain Current Visit: Yes Status: Acute - Time Spent with Patient Total time spent is greater than 50% in coordination of care (as documented) at patient's floor/unit and/or counseling patient: Internal Medicine: Result - Labs CBC & Chem 7: 11/07/18 00:23 11/07/18 00:23 - Attending Attestation I examined this patient and my medical decision-making was reviewed with the Resident Physician on 11/08/18. I agree with the documented findings, disposition and treatment plan as described except to the extent set forth below. Ms Roberts is currently admitted for fever with hx of chemotherapy. She remains moderate to high risk due to potential for worsening clinical status. Ms Roberts was febrile again. Just got Tylenol. Very diaphoretic now. No CP or SOB. Coughing but no sputum. Sinus congestion present. No pain now. No diarrhea now. Exam alert Diaphoretic Mucus membranes dry Heart reg and not tachy No wheeze though has some rhonchi Abd soft - nontender now No edema I/P 1. Severe sepsis - appreciate ID input. Abx changed. CT abd/pelvis and RIP ordered. ? GI versus respiratory. RIP pending. 2. GE junction carcinoma - on PO chemo as well as IV 3. Gastroenteritis - CT abd/pelvis ordered 4. GERD Further diagnoses and plan as above. <Geraldo Palmer - Last Filed: 11/08/18 15:49> (5) Abdominal pain Qualifiers: Abdominal location: generalized Qualified Code(s): R10.84 - Generalized abdominal pain
[2018-11-08 14:18] LABS: Adenovirus Not Detected (Not Detect); Coronavirus 229E Not Detected (Not Detect); Coronavirus HKU1 Not Detected (Not Detect); Coronavirus NL63 Not Detected (Not Detect); Coronavirus OC43 Not Detected (Not Detect); Human Metapneumovirus Not Detected (Not Detect); Human Rhinovirus/Enterovirus Not Detected (Not Detect)
[2018-11-08 14:19] LABS: Bordetella Pertussis Not Detected (Not Detect); Chlamydophila pneumoniae Not Detected (Not Detect); Influenza A Subtype 2009 H1 DETECTED (Not Detect); Influenza A Untypeable Not Detected (Not Detect); Influenza B Not Detected (Not Detect); Mycoplasma pneumoniae Not Detected (Not Detect); Parainfluenza Virus 1 Not Detected (Not Detect); Parainfluenza Virus 2 Not Detected (Not Detect); Parainfluenza Virus 3 Not Detected (Not Detect); Parainfluenza Virus 4 Not Detected (Not Detect); Respiratory Syncytial Virus Not Detected (Not Detect)
[2018-11-09] MEDS: CAPECITABINE 500 MG PO SCH ×3 (00:35→19:52)
[2018-11-09] MEDS: Acetaminophen 325 MG TABLET PO PRN ×2 (00:36→08:43)
[2018-11-09] MEDS: Ondansetron ODT 4 MG TAB.RAPDIS SL SCH ×5 (00:37→23:03)
[2018-11-09] MEDS: MetroNIDAZOLE 500 MG/100 ML 500 MG/100 ML BAG IVPB SCH ×4 (00:40→23:06)
[2018-11-09 04:39] LABS: Adenovirus Not Detected (Not Detect); Bordetella Pertussis Not Detected (Not Detect); Chlamydophila pneumoniae Not Detected (Not Detect); Coronavirus 229E Not Detected (Not Detect); Coronavirus HKU1 Not Detected (Not Detect); Coronavirus NL63 Not Detected (Not Detect); Coronavirus OC43 Not Detected (Not Detect); Human Metapneumovirus Not Detected (Not Detect); Human Rhinovirus/Enterovirus Not Detected (Not Detect); Influenza A Subtype 2009 H1 DETECTED (Not Detect); Influenza A Untypeable Not Detected (Not Detect); Influenza B Not Detected (Not Detect); Mycoplasma pneumoniae Not Detected (Not Detect); Parainfluenza Virus 1 Not Detected (Not Detect); Parainfluenza Virus 2 Not Detected (Not Detect); Parainfluenza Virus 3 Not Detected (Not Detect); Parainfluenza Virus 4 Not Detected (Not Detect); Respiratory Syncytial Virus Not Detected (Not Detect)
[2018-11-09] MEDS: *HR* Enoxaparin 40 MG/0.4 ML SYRINGE SQ SCH (05:32)
[2018-11-09] MEDS: Ringers Solution, Lactated 1,000 ML IVC SCH ×3 (07:42→21:30)
[2018-11-09 08:32] LABS: Basophils % 0.5 %; Eosinophils # 0.1 K/mcL (0.0-0.6); Hematocrit 34.8 % (35.3-44.9); Hemoglobin 11.7 g/dL (11.5-15.4); Immature Granulocytes % 0.7 % (0-4); Lymphocytes # 1.2 K/mcL (0.6-4.6); Mean Corpuscular HGB Conc 33.6 g/dL (31.6-35.5); Mean Corpuscular Hemoglobin 30.6 pg (28.0-33.3); Mean Corpuscular Volume 91.1 fL (83.0-100.0); Monocytes # 0.9 K/mcL (0.0-1.3); Monocytes % 14.9 %; Neutrophils # 3.8 K/mcL (1.6-8.9); Platelet Count 130 K/mcL (140-400); Red Blood Count 3.82 M/mcL (3.82-4.97); Red Cell Distribution Width 16.8 % (11.5-14.5); Segmented Neutrophils % 61.9 %
[2018-11-09] MEDS: Insulin LISPRO 300 UNITS/3 ML VIAL SQ SCH ×4 (08:32→20:09)
[2018-11-09] MEDS: *HR* Morphine Sulfate SR (12 HR) 15 MG TABLET.ER PO SCH ×2 (08:38→19:53)
[2018-11-09] MEDS: hydrOXYzine pamoate 25 MG CAPSULE PO SCH ×2 (08:38→19:54)
[2018-11-09] MEDS: Levofloxacin 750 MG/150 ML 750 MG/150 ML BAG IVPB SCH (08:39)
[2018-11-09 08:50] LABS: Alanine Aminotransferase 27 Units/L (7-52); Albumin 3.3 g/dL (3.5-5.7); Albumin/Globulin Ratio 1.1 (1.1-2.2); Alkaline Phosphatase 163 Units/L (34-104); Amylase 36 Units/L (29-103); Aspartate Amino Transferase 29 Units/L (13-39); BUN/Creatinine Ratio 10 (6-26); Bilirubin,Total 1.1 mg/dL (0.3-1.0); Blood Urea Nitrogen 8 mg/dL (6-20); Calcium 8.5 mg/dL (8.6-10.3); Carbon Dioxide 27 mEq/L (23-29); Chloride 105 mEq/L (98-107); Glucose 140 mg/dL (70-105); Osmolality,Calculated 285 (280-300); Potassium 3.9 mEq/L (3.5-5.1); Sodium 137 mEq/L (136-145); Total Protein 6.3 g/dL (6.4-8.9); eGFR For Non-African Americans > 60 (> 60)
--- NOTE | 2018-11-09 10:03 | Internal Med Progress Note ---
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 She states that she has had several ill contacts with sinus infection and believes that she has contracted one as well. She does admit to some sinus pressure as well as productive cough with thick yellow sputum. Also admits to dysuria, without urinary frequency, or hematuria. Upon initial evaluation this AM, patient was sitting upright in bed. Patient admits to constipation x 3 days, suprapubic pain, dysuria, nausea, myalgias, as well as "throat irritation." Patient denies headache, vision change, tinnitus, CP/SOB, vomiting, diarrhea, paresthesias or difficulty ambulating. - Exam Vitals: Temp Pulse Resp BP Pulse Ox 100.7 F H 97 19 136/84 97 11/09/18 07:55 11/09/18 07:55 11/09/18 07:55 11/09/18 07:55 11/09/18 07:55 Exam: Constitutional: Patient is awake, alert, pleasant, engaged conversation, answers questions appropriately, is in no acute distress Cardiovascular: rhythm rate regular, no murmurs, gallops, or rubs appreciated. Respiratory: Clear to auscultation bilaterally, no wheezes, rhonchi, or stridor appreciated. Abdomen: Abdomen is soft, obese, nondistended, - Assessment and Plan (1) Influenza A (H1N1) Current Visit: Yes Status: Acute Assessment and Plan: Patient continues to have low-grade, intermittent fevers - currently well- controlled with tylenol Currently non tachycardic, non-tachypnic, normotensive, O2 saturation at 98% on RA WBC 6.1 no shift, Lactate WNL Respiratory panel POSITIVE for Influenza A ID consulted and is following -Plan Continue Oseltamivir (day 2 of 5) (2) Gastroenteritis Current Visit: Yes Status: Acute Assessment and Plan: CT abd/pelvis shows mild colitis ID consulted and is following Continue Levaquin + Flagyl (3) UTI (urinary tract infection) Current Visit: Yes Status: Suspected Assessment and Plan: Patient c/o dysuria, suprapubic pain - will repeat urinalysis and add 150mg fluconazole to cover for potential yeast infection Urine culture showed no growth Blood cultures PENDING ID consulted and is following Continue Levaquin + Flagyl Fluconazole 150mg once to cover Janet sp. in the setting of positive symptoms plus current chemoradiation therapy (4) GE junction carcinoma Current Visit: Yes Status: Chronic Assessment and Plan: - Known history on chemotherapy - We will continue chemotherapy while inpatient - Further management per oncologist once discharged (5) Constipation Current Visit: Yes Status: Acute Assessment and Plan: Patient has had no BM for 3 days Will start on Miralax 17gm PO daily (6) Tobacco abuse Current Visit: No Status: Chronic Assessment and Plan: Patient has a 60 pack year smoking history - quit in August of 2018 Mild expiratory wheeze noted to auscultation likely 2/2 chronic airway inflammation vs. influenza Patient will be started on 40mg Prednisone PO daily DVT Prophylaxis: Lovenox 40mg SQ QAM - Time Spent with Patient Total time spent is greater than 50% in coordination of care (as documented) at patient's floor/unit and/or counseling patient: Internal Medicine: Result - Labs CBC & Chem 7: 11/09/18 08:15 11/09/18 08:15 Labs: Short CBC 11/09/18 Range/Units 08:15 WBC 6.1 (4.3-11.1) K/mcL Hgb 11.7 (11.5-15.4) g/dL Hct 34.8 L (35.3-44.9) % Plt Count 130 L (140-400) K/mcL Neutrophils # 3.8 (1.6-8.9) K/mcL BMP 11/09/18 08:15 Sodium 137 Potassium 3.9 Chloride 105 Carbon Dioxide 27 BUN 8 Creatinine 0.83 Glucose 140 H Calcium 8.5 L Liver Function 11/09/18 Range/Units 08:15 Total Bilirubin 1.1 H (0.3-1.0) mg/dL AST 29 (13-39) Units/L ALT 27 (7-52) Units/L Alkaline Phosphatase 163 H (34-104) Units/L Albumin 3.3 L (3.5-5.7) g/dL - Impressions Impressions Abdomen/Pelvis CT 11/08/18 16:00 IMPRESSION: 1. There is some pericolonic inflammatory change in the right upper quadrant adjacent to the ascending colon suspicious of mild colitis without adjacent fluid collection. 2. Partially calcified hepatic masses are grossly stable compared to most recent CT. 3. Findings suspicious of bilateral sacroiliitis The findings were sent to the Radiology Results Communication Center at 4:39 pm on 11/08/2018to be communicated to a licensed caregiver. D/ / Camden Gipson / Camden Gipson Interpreting Provider: Camden Gipson Consult Discharge Plan - Plan Referrals: NONE,PCP [Primary Care Provider] - <Geraldo Palmer - Last Filed: 11/09/18 16:15> Hospitalist Progress Note - Encounter Date of Encounter: 11/09/18 - Exam Vitals: Temp Pulse Resp BP Pulse Ox 98.7 F 73 19 109/65 98 11/09/18 11:49 11/09/18 11:49 11/09/18 11:49 11/09/18 11:49 11/09/18 11:49 - Assessment and Plan (1) Severe sepsis Current Visit: Yes Status: Acute (2) Viral syndrome Current Visit: Yes Status: Acute (3) GE junction carcinoma Current Visit: Yes Status: Chronic (4) Gastroenteritis Current Visit: Yes Status: Acute (5) Abdominal pain Current Visit: Yes Status: Acute (6) Influenza A (H1N1) Current Visit: Yes Status: Acute (7) Constipation Current Visit: Yes Status: Acute - Time Spent with Patient Total time spent is greater than 50% in coordination of care (as documented) at patient's floor/unit and/or counseling patient: Internal Medicine: Result - Labs CBC & Chem 7: 11/09/18 08:15 11/09/18 08:15 Labs: Short CBC 11/09/18 Range/Units 08:15 WBC 6.1 (4.3-11.1) K/mcL Hgb 11.7 (11.5-15.4) g/dL Hct 34.8 L (35.3-44.9) % Plt Count 130 L (140-400) K/mcL Neutrophils # 3.8 (1.6-8.9) K/mcL BMP 11/09/18 08:15 Sodium 137 Potassium 3.9 Chloride 105 Carbon Dioxide 27 BUN 8 Creatinine 0.83 Glucose 140 H Calcium 8.5 L Liver Function 11/09/18 Range/Units 08:15 Total Bilirubin 1.1 H (0.3-1.0) mg/dL AST 29 (13-39) Units/L ALT 27 (7-52) Units/L Alkaline Phosphatase 163 H (34-104) Units/L Albumin 3.3 L (3.5-5.7) g/dL Urine 11/09/18 Range/Units 15:01 Urine Color Dark Yellow (Yellow) Urine Clarity Clear (Clear) Urine pH 6.0 (5.0-8.0) pH Units Ur Specific [place] 1.019 (1.010-1.025) Urine Protein Trace (Neg-Trace) mg/dL Urine Glucose (UA) >=1000 H (Normal) mg/dL - Impressions Impressions Abdomen/Pelvis CT 11/08/18 16:00 IMPRESSION: 1. There is some pericolonic inflammatory change in the right upper quadrant adjacent to the ascending colon suspicious of mild colitis without adjacent fluid collection. 2. Partially calcified hepatic masses are grossly stable compared to most recent CT. 3. Findings suspicious of bilateral sacroiliitis The findings were sent to the Radiology Results Communication Center at 4:39 pm on 11/08/2018to be communicated to a licensed caregiver. D/ / Camden Gipson / Camden Gipson Interpreting Provider: Camden Gipson - Attending Attestation I examined this patient and my medical decision-making was reviewed with the Resident Physician on 11/09/18. I agree with the documented findings, disposition and treatment plan as described except to the extent set forth below. Ms Roberts is currently admitted for acute influenza and colitis. She remains moderate to high risk due to potential for worsening clinical status. Ms Roberts is doing a little better. Overall fever curve is decreasing. No chest pain. Coughing a lot and can't get up secretions. Constipated now. Exam alert Comfortable lying flat Mucus membranes dry Heart reg and not tachy Some rhonchi bilaterally. Wheeze on L Abd soft - some discomfort in suprapubic area No edema I/P 1. Acute influenza A - on Tamiflu 2. Colitis - on Levaquin/Flagyl 3. Check UA. 4. Hx sinusitis - currently on Levaquin for coverage. Further diagnoses and plan as above Anticipate d/c in next 1-2 days if continues to improve. <Saúl Sol - Last Filed: 11/09/18 14:45> (3) UTI (urinary tract infection) Qualifiers: Urinary tract infection type: acute cystitis Hematuria presence: without hematuria Qualified Code(s): N30.00 - Acute cystitis without hematuria <Geraldo Palmer - Last Filed: 11/09/18 16:15> (5) Abdominal pain Qualifiers: Abdominal location: generalized Qualified Code(s): R10.84 - Generalized abdominal pain (7) Constipation Qualifiers: Constipation type: slow transit constipation Qualified Code(s): K59.01 - Slow transit constipation
[2018-11-09] MEDS ORDERED: Fluconazole 100 MG TABLET PO ONE (11:22)
[2018-11-09 15:14] LABS: Bilirubin,Urine Negative (Negative); Blood,Urine Negative (Negative); Clarity,Urine Clear (Clear); Color,Urine Dark Yellow (Yellow); Glucose,Urine (UA) >=1000 mg/dL (Normal); Ketones,Urine Negative (Negative); Leukocyte Esterase,Urine Negative (Negative); Nitrite,Urine Negative (Negative); Protein,Urine Trace mg/dL (Neg-Trace); Specific Gravity,Urine 1.019 (1.010-1.025); Urobilinogen,Urine Normal (Normal)
[2018-11-09 15:17] LABS: Bacteria,Urine None Seen per hpf (None-Few); Hyaline Casts,Urine None Seen per lpf (None-Few); Squamous Epithelial Cell,Urine Many per lpf (None-Few)
[2018-11-09] MEDS: predniSONE 20 MG TABLET PO SCH (15:22)
--- NOTE | 2018-11-09 15:22 | Event Note ---
Date of Encounter: 11/09/18 Time of Encounter: 15:14 Resident physician Gutierrez Hall and Thor Amaya called to patient room d/t numbness and tingling in extremities with patient experiencing a "lump in throat" sensation. Patient states that it feels like a mild form of an allergic reaction she experienced while receiving chemotherapy at [facility], but patient states this sensation is not nearly as severe as her allergic reaction. Patient denies difficulty breathing, is able to tolerate PO fluid intake. Patient CTAB, no wheezes or stridor appreciated, no rash or overt flushing noted, airway clear without swelling or edema, tongue does not appear swollen. Patient to be started on prednisone 40mg d/t airway inflammation likely 2/2 smoking history vs. influenza. Will add 25mg benadryl for potential allergic reaction. Patient re-evaluated shortly after event and stated that she was beginning to feel better. Medications and plans for further testing discussed with the patient and patient was given time to ask questions. Patient was told to inform staff if she has any concerns. Patient verbalizes her understanding.
[2018-11-09] MEDS: *HR* LORazepam 1 MG TABLET PO PRN (23:03)
[2018-11-10] MEDS: *HR* Enoxaparin 40 MG/0.4 ML SYRINGE SQ SCH (04:33)
[2018-11-10] MEDS: Ondansetron ODT 4 MG TAB.RAPDIS SL SCH ×4 (04:33→23:51)
[2018-11-10] MEDS: Ringers Solution, Lactated 1,000 ML IVC SCH ×2 (06:43→20:43)
[2018-11-10 07:05] LABS: Basophils % 0.2 %; Hematocrit 32.6 % (35.3-44.9); Hemoglobin 10.9 g/dL (11.5-15.4); Immature Granulocytes % 0.7 % (0-4); Lymphocytes # 1.2 K/mcL (0.6-4.6); Lymphocytes % 21.3 %; Mean Corpuscular HGB Conc 33.4 g/dL (31.6-35.5); Mean Corpuscular Hemoglobin 30.8 pg (28.0-33.3); Mean Corpuscular Volume 92.1 fL (83.0-100.0); Mean Platelet Volume 12.7 fL (9.4-12.4); Monocytes # 0.7 K/mcL (0.0-1.3); Monocytes % 12.7 %; Neutrophils # 3.7 K/mcL (1.6-8.9); Platelet Count 114 K/mcL (140-400); Red Blood Count 3.54 M/mcL (3.82-4.97); Red Cell Distribution Width 16.2 % (11.5-14.5); Segmented Neutrophils % 65.1 %
[2018-11-10 07:25] LABS: Alanine Aminotransferase 21 Units/L (7-52); Albumin/Globulin Ratio 1.2 (1.1-2.2); Alkaline Phosphatase 149 Units/L (34-104); Aspartate Amino Transferase 19 Units/L (13-39); BUN/Creatinine Ratio 14 (6-26); Bilirubin,Total 0.9 mg/dL (0.3-1.0); Blood Urea Nitrogen 9 mg/dL (6-20); Calcium 8.2 mg/dL (8.6-10.3); Carbon Dioxide 23 mEq/L (23-29); Chloride 106 mEq/L (98-107); Globulin 2.6 g/dL (2.4-3.5); Glucose 278 mg/dL (70-105); Osmolality,Calculated 291 (280-300); Potassium 3.9 mEq/L (3.5-5.1); Sodium 136 mEq/L (136-145); Total Protein 5.6 g/dL (6.4-8.9); eGFR For Non-African Americans > 60 (> 60)
[2018-11-10] MEDS: hydrOXYzine pamoate 25 MG CAPSULE PO SCH ×2 (07:49→20:32)
[2018-11-10] MEDS: predniSONE 20 MG TABLET PO SCH (07:49)
[2018-11-10] MEDS: *HR* Morphine Sulfate SR (12 HR) 15 MG TABLET.ER PO SCH ×2 (07:49→20:33)
[2018-11-10] MEDS: MetroNIDAZOLE 500 MG/100 ML 500 MG/100 ML BAG IVPB SCH (07:50)
[2018-11-10] MEDS: Levofloxacin 750 MG/150 ML 750 MG/150 ML BAG IVPB SCH (07:50)
[2018-11-10] MEDS: Insulin LISPRO 300 UNITS/3 ML VIAL SQ SCH ×4 (07:51→20:33)
[2018-11-10] MEDS: CAPECITABINE 500 MG PO SCH ×2 (08:45→20:32)
--- NOTE | 2018-11-10 09:35 | Electrocardiograph Report ---
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
--- NOTE | 2018-11-10 11:14 | Infectious Disease Progress No ---
Date of Encounter: 11/10/18 Time of Encounter: 11:11 - Assessment and Plan (1) Severe sepsis Current Visit: Yes Status: Acute The patient had 3 sepsis criteria plus lactic acidosis on admission. Likely secondary to influenza and colitis. Improved. White blood cell count has normalized. She did have a low-grade fever with a MAXIMUM TEMPERATURE of 100.7 last 24 hours. Tachycardia and lactic acidosis have resolved. Blood cultures drawn on 11/06/18 are no growth 2 sets. Recommendations: Continue supportive care for viral syndrome. Droplet precautions for influenza. Continue levaquin 750mg IV daily (day 2). Continue flagyl 500mg PO TID (day 4). Continue tamiflu 75mg PO daily (day 3). Duration of treatment depends on the clinical picture, but likely 5 days of Tamiflu. Recommend a total of 7 days for Levaquin/Flagyl. Can switch to PO Levaquin when ready for discharge. Monitor renal function and dose-adjust antibiotics. (2) Viral syndrome Current Visit: Yes Status: Acute URI likely secondary to influenza A (H1N1/). Flu antigen swab negative, but RIP positive. Clinically improved. Currently day 3 of Tamiflu. (3) Influenza A (H1N1) Current Visit: Yes Status: Acute (4) Colitis Current Visit: Yes Status: Acute CT abdomen and pelvis showed pericolonic inflammatory change in the right upper quadrant adjacent to the descending colon suspicious of mild colitis without adjacent fluid collection. No diarrhea. Currently on Levaquin and Flagyl. (5) Abdominal pain Current Visit: Yes Status: Acute Likely secondary to colitis vs. chronic pain. LFTs improved. Amylase and lipase normal. Pain management per the primary team. Qualifiers: Abdominal location: generalized Qualified Code(s): R10.84 - Generalized abdominal pain (6) Allergy to multiple antibiotics Current Visit: Yes Status: Acute Penicillin: Had the reaction about 5 years ago with difficulty breathing. Recently has taken Augmentin for a foot wound infection and tolerated the Augmentin just fine. Bactrim trouble breathing about 10 years ago. If needed I believe patient should do okay with cephalosporins. 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 PET showed liver mets. Currently on palliative chemotherapy: Oxiplatin, Xeloda, Docetaxel Q3 weeks indefinitely. Last dose 12/26, but patient states developed TITUS with infusion. (8) Tobacco abuse Current Visit: No Status: Chronic - Subjective Interval history: Patient seen and examined. Overnight events noted. Patient apparently started complaining of shortness of breath and was concerned that she might be having a reaction to medication, but her symptoms improved with steroids and Benadryl. The patient states she had some sweating yesterday, but denies anything overnight. Denies any fevers or chills or rigors. Denies chest pain or shortness of breath. States she does have somewhat of a sore throat and had some rhinorrhea overnight with dark brown drainage. She denies cough, nausea, vomiting, or diarrhea. She denies abdominal pain or urinary complaints. She denies any oral thrush or new skin lesions. Infect Dis PN-Objective Data - Labs CBC & Chem 7: 11/11/18 05:17 11/11/18 05:17 Labs: Laboratory Results - last 24 hr 11/09/18 11/09/18 11/09/18 07:54 11:48 15:01 WBC RBC Hgb Hct MCV MCH MCHC RDW Plt Count MPV Immature Gran % Seg Neutrophils % Lymphocytes % Monocytes % Eosinophils % Basophils % Neutrophils # Lymphocytes # Monocytes # Eosinophils # Basophils # Sodium Potassium Chloride Carbon Dioxide BUN Creatinine Est GFR ( Amer) Est GFR (Non-Af Amer) BUN/Creatinine Ratio Glucose POC Glucose 144 H 214 H Calculated Osmolality Calcium Total Bilirubin AST ALT Alkaline Phosphatase Serum Total Protein Albumin Globulin Albumin/Globulin Ratio Urine Color Dark Yellow Urine Clarity Clear Urine pH 6.0 Ur Specific Likely 1.019 Urine Protein Trace Urine Glucose (UA) >=1000 H Urine Ketones Negative Urine Blood Negative Urine Nitrite Negative Urine Bilirubin Negative Urine Urobilinogen Normal Ur Leukocyte Esterase Negative Urine Microscopic RBC 5-15 H Urine Microscopic WBC 3-5 H Ur Squamous Epith Cells Many H Urine Bacteria None Seen Hyaline Casts None Seen Ur Culture Indicated? NO 11/09/18 11/09/18 11/10/18 17:07 20:08 06:20 WBC 5.7 RBC 3.54 L Hgb 10.9 L Hct 32.6 L MCV 92.1 MCH 30.8 MCHC 33.4 RDW 16.2 H Plt Count 114 L MPV 12.7 H Immature Gran % 0.7 Seg Neutrophils % 65.1 Lymphocytes % 21.3 Monocytes % 12.7 Eosinophils % 0.0 Basophils % 0.2 Neutrophils # 3.7 Lymphocytes # 1.2 Monocytes # 0.7 Eosinophils # 0.0 Basophils # 0.0 Sodium Potassium Chloride Carbon Dioxide BUN Creatinine Est GFR ( Amer) Est GFR (Non-Af Amer) BUN/Creatinine Ratio Glucose POC Glucose 99 160 H Calculated Osmolality Calcium Total Bilirubin AST ALT Alkaline Phosphatase Serum Total Protein Albumin Globulin Albumin/Globulin Ratio Urine Color Urine Clarity Urine pH Ur Specific Likely Urine Protein Urine Glucose (UA) Urine Ketones Urine Blood Urine Nitrite Urine Bilirubin Urine Urobilinogen Ur Leukocyte Esterase Urine Microscopic RBC Urine Microscopic WBC Ur Squamous Epith Cells Urine Bacteria Hyaline Casts Ur Culture Indicated? 11/10/18 11/10/18 06:20 07:07 WBC RBC Hgb Hct MCV MCH MCHC RDW Plt Count MPV Immature Gran % Seg Neutrophils % Lymphocytes % Monocytes % Eosinophils % Basophils % Neutrophils # Lymphocytes # Monocytes # Eosinophils # Basophils # Sodium 136 Potassium 3.9 Chloride 106 Carbon Dioxide 23 BUN 9 Creatinine 0.66 Est GFR ( Amer) > 60 Est GFR (Non-Af Amer) > 60 BUN/Creatinine Ratio 14 Glucose 278 H POC Glucose 238 H Calculated Osmolality 291 Calcium 8.2 L Total Bilirubin 0.9 AST 19 ALT 21 Alkaline Phosphatase 149 H Serum Total Protein 5.6 L Albumin 3.0 L Globulin 2.6 Albumin/Globulin Ratio 1.2 Urine Color Urine Clarity Urine pH Ur Specific Likely Urine Protein Urine Glucose (UA) Urine Ketones Urine Blood Urine Nitrite Urine Bilirubin Urine Urobilinogen Ur Leukocyte Esterase Urine Microscopic RBC Urine Microscopic WBC Ur Squamous Epith Cells Urine Bacteria Hyaline Casts Ur Culture Indicated? Cultures: Cultures 11/07/18 11:30 Urine Culture - Final Urine,Clean Catch No growth. 11/06/18 21:48 Blood Culture - Preliminary Peripheral Venipuncture Culture is incubating and being continuously monitored for growth. Final report to follow. 11/06/18 21:44 Influenza Types A,B Antigen - Final Nasopharyngeal 11/06/18 20:52 Blood Culture - Preliminary Peripheral Venipuncture Culture is incubating and being continuously mon itored for growth. Final report to follow. Serology 11/09/18 11/09/18 11/08/18 Range/Units 15:01 00:45 13:20 Urine Color Dark Yellow (Yellow) Urine Clarity Clear (Clear) Urine pH 6.0 (5.0-8.0) pH Units Ur Specific Likely 1.019 (1.010-1.025) Urine Protein Trace (Neg-Trace) mg/dL Urine Glucose (UA) >=1000 H (Normal) mg/dL Urine Ketones Negative (Negative) mg/dL Urine Blood Negative (Negative) Urine Nitrite Negative (Negative) Urine Bilirubin Negative (Negative) Urine Urobilinogen Normal (Normal) mg/dL Ur Leukocyte Esterase Negative (Negative) Urine Microscopic RBC 5-15 H (0-3) per hpf Urine Microscopic WBC 3-5 H (0-3) per hpf Ur Squamous Epith Cells Many H (None-Few) per lpf Urine Bacteria None Seen (None-Few) per hpf Hyaline Casts None Seen (None-Few) per lpf Ur Culture Indicated? NO (NO) Chlamy pneumoniae PCR Not Detected Not Detected (Not Detect) Adenovirus (PCR) Not Detected Not Detected (Not Detect) B. pertussis DNA (PCR) Not Detected Not Detected (Not Detect) B.parapertussis DNA PCR Not Detected Not Detected (Not Detect) Coronavirus OC43 (PCR) Not Detected Not Detected (Not Detect) Coronavirus HKU1 (PCR) Not Detected Not Detected (Not Detect) Coronavirus 229E (PCR) Not Detected Not Detected (Not Detect) Coronavirus NL63 (PCR) Not Detected Not Detected (Not Detect) Human Metapneumovir PCR Not Detected Not Detected (Not Detect) Influenza A (H1) PCR Not Detected Not Detected (Not Detect) Influ A (H1N1/09) PCR DETECTED A DETECTED A (Not Detect) Influenza A (H3) PCR Not Detected Not Detected (Not Detect) Influenza A Untype (PCR) Not Detected Not Detected (Not Detect) Influenza Type B (PCR) Not Detected Not Detected (Not Detect) M.pneumoniae DNA (PCR) Not Detected Not Detected (Not Detect) Parainfluenza 1 (PCR) Not Detected Not Detected (Not Detect) Parainfluenza 2 (PCR) Not Detected Not Detected (Not Detect) Parainfluenza 3 (PCR) Not Detected Not Detected (Not Detect) Parainfluenza 4 (PCR) Not Detected Not Detected (Not Detect) RSV (PCR) Not Detected Not Detected (Not Detect) Entero/Rhino (PCR) Not Detected Not Detected (Not Detect) 11/07/18 11/06/18 Range/Units 11:30 21:06 Urine Color Dark Yellow Dark Yellow (Yellow) Urine Clarity Clear Cloudy A (Clear) Urine pH 6.0 6.0 (5.0-8.0) pH Units Ur Specific Likely 1.022 1.022 (1.010-1.025) Urine Protein 30 H 100 H (Neg-Trace) mg/dL Urine Glucose (UA) >=1000 H 250 H (Normal) mg/dL Urine Ketones Negative Negative (Negative) mg/dL Urine Blood Small H Large H (Negative) Urine Nitrite Negative Negative (Negative) Urine Bilirubin Negative Negative (Negative) Urine Urobilinogen 2.0 H Normal (Normal) mg/dL Ur Leukocyte Esterase Negative Small H (Negative) Urine Microscopic RBC 0-3 0-3 (0-3) per hpf Urine Microscopic WBC 5-15 H 30-50 H (0-3) per hpf Ur Squamous Epith Cells Many H Many H (None-Few) per lpf Urine Bacteria Few Moderate H (None-Few) per hpf Hyaline Casts None Seen None Seen (None-Few) per lpf Ur Culture Indicated? NO NO. A (NO) Chlamy pneumoniae PCR (Not Detect) Adenovirus (PCR) (Not Detect) B. pertussis DNA (PCR) (Not Detect) B.parapertussis DNA PCR (Not Detect) Coronavirus OC43 (PCR) (Not Detect) Coronavirus HKU1 (PCR) (Not Detect) Coronavirus 229E (PCR) (Not Detect) Coronavirus NL63 (PCR) (Not Detect) Human Metapneumovir PCR (Not Detect) Influenza A (H1) PCR (Not Detect) Influ A (H1N1/09) PCR (Not Detect) Influenza A (H3) PCR (Not Detect) Influenza A Untype (PCR) (Not Detect) Influenza Type B (PCR) (Not Detect) M.pneumoniae DNA (PCR) (Not Detect) Parainfluenza 1 (PCR) (Not Detect) Parainfluenza 2 (PCR) (Not Detect) Parainfluenza 3 (PCR) (Not Detect) Parainfluenza 4 (PCR) (Not Detect) RSV (PCR) (Not Detect) Entero/Rhino (PCR) (Not Detect) Exam - Constitutional Vitals: Temp Pulse Resp BP Pulse Ox 98.8 F 82 20 129/69 96 11/10/18 10:38 11/10/18 10:38 11/10/18 10:38 11/10/18 10:38 11/10/18 10:38 General appearance: cooperative, no acute distress, obese - Head Head exam: Present: atraumatic, normal inspection, normocephalic - Eye Eye exam: Present: EOMI, normal appearance, PERRL Pupils: Present: normal accommodation - ENT ENT exam: Present: mucous membranes moist - Neck Neck exam: Present: normal inspection - Respiratory Respiratory exam: Present: CTAB. Absent: rales, respiratory distress, rhonchi, wheezes - Cardiovascular Cardiovascular exam: Present: RRR, +S1, +S2 - GI/Abdominal GI/Abdominal exam: Present: distended (Obese), normal bowel sounds, soft, tenderness (Right lower quadrant) - Extremities Exam Extremities exam: Present: normal inspection. Absent: joint swelling, pedal edema, tenderness - Neurological Exam Neurological exam: Present: alert, oriented X3, no focal deficits - Psychiatric Psychiatric exam: Present: normal affect, normal mood - Skin Skin exam: Present: dry, intact, normal color, warm Consult Discharge Plan - Plan Referrals: NONE,PCP [Primary Care Provider] - - Attending Attestation I examined this patient and my medical decision-making was reviewed with the Resident Physician. I agree with the documented findings, disposition and tr eatment plan as described except to the extent set forth below.
--- NOTE | 2018-11-10 11:40 | Internal Med Progress Note ---
Addendum entered and electronically signed by Geraldo Palmer DO 11/10/18 15:22: Addl diagnosis: Moderate nonsevere protein calorie malnutrition Original Note: <SwetaSaúl - Last Filed: 11/10/18 14:31> Hospitalist Progress Note - Encounter Date of Encounter: 11/10/18 Time of Encounter: 11:39 - Subjective Interval History: Tami Roberts is a 48 year old female with past medical history of adenocarcinoma at GE junction on chemotherapy at [facility], who presented to the emergency department with complaint of nausea, vomiting, fevers, diarrhea starting 11/07. Patient continuing to take home QD chemotherapy medications while in hospital Patient found to have H1N1 Influenza A and started on Oseltamivir by ID on 11/08 Patient admits to "nervousness" and had one episode of tingling in extremities and a globus sensation in throat on 11/09. Patient given 25mg Benadryl for symp toms management. Upon initial evaluation this AM, patient was sitting upright in bed. Patient denies headache, vision change, tinnitus, CP/SOB, N/V/D, paresthesias or difficulty ambulating. Patient has no concerns, questions, or complaints this time. - Exam Vitals: Temp Pulse Resp BP Pulse Ox 98.8 F 82 20 129/69 96 11/10/18 10:38 11/10/18 10:38 11/10/18 10:38 11/10/18 10:38 11/10/18 10:38 Exam: Constitutional: Patient is awake, alert, pleasant, engaged conversation, answers questions appropriately, is in no acute distress Cardiovascular: rhythm rate regular, no murmurs, gallops, or rubs appreciated. Respiratory: Clear to auscultation bilaterally, no wheezes, rhonchi, or stridor appreciated. 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 (5) Constipation Current Visit: Yes Status: Acute (6) Tobacco abuse Current Visit: No Status: Chronic DVT Prophylaxis: Lovenox 40mg SQ QAM - Summary of Assessment and Plan Summary of Assessment and Plan: (1) Influenza A (H1N1) Current Visit: Yes Status: Acute Assessment and Plan: Currently afebrile, non tachycardic, non-tachypnic, normotensive, O2 saturation at 96% on RA Droplet precautions WBC 5.7 no shift, Lactate WNL Respiratory panel POSITIVE for Influenza A Patient c/o sore throat on 11/10/18 - will give Q2H PRN Cepacol sore throat lozenge ID consulted and is following -Plan Continue Oseltamivir (day 3 of 5) (2) Gastroenteritis Current Visit: Yes Status: Acute Assessment and Plan: CT abd/pelvis shows mild colitis ID consulted and is following Continue Levaquin (day 2) + Flagyl (day 4) (3) UTI (urinary tract infection) Current Visit: Yes Status: Suspected Assessment and Plan: Urinalysis normal 150mg fluconazole ONCE on 11/09/18 to cover for potential yeast infection Urine culture showed no growth Blood cultures show no growth to date ID consulted and is following Continue Levaquin + Flagyl (4) GE junction carcinoma Current Visit: Yes Status: Chronic Assessment and Plan: - Known history on chemotherapy - We will continue chemotherapy while inpatient - Further management per oncologist once discharged (5) Constipation Current Visit: Yes Status: Acute Assessment and Plan: Patient reported 3 days constipation on 11/09 - started on Miralax 17gm/day Patient admits to 3x BM yesterday after Miralax - will give one additional day of Miralax then d/c (6) Tobacco abuse Current Visit: No Status: Chronic Assessment and Plan: Patient has a 60 pack year smoking history - quit in August of 2018 Mild expiratory wheeze noted to auscultation likely 2/2 chronic airway inflammation vs. influenza Patient started on 40mg Prednisone PO daily on 11/09 - will continue - Time Spent with Patient Total time spent is greater than 50% in coordination of care (as documented) at patient's floor/unit and/or counseling patient: Internal Medicine: Result - Labs CBC & Chem 7: 11/10/18 06:20 11/10/18 06:20 Labs: Short CBC 11/10/18 Range/Units 06:20 WBC 5.7 (4.3-11.1) K/mcL Hgb 10.9 L (11.5-15.4) g/dL Hct 32.6 L (35.3-44.9) % Plt Count 114 L (140-400) K/mcL Neutrophils # 3.7 (1.6-8.9) K/mcL BMP 11/10/18 06:20 Sodium 136 Potassium 3.9 Chloride 106 Carbon Dioxide 23 BUN 9 Creatinine 0.66 Glucose 278 H Calcium 8.2 L Liver Function 11/10/18 Range/Units 06:20 Total Bilirubin 0.9 (0.3-1.0) mg/dL AST 19 (13-39) Units/L ALT 21 (7-52) Units/L Alkaline Phosphatase 149 H (34-104) Units/L Albumin 3.0 L (3.5-5.7) g/dL Urine 11/09/18 Range/Units 15:01 Urine Color Dark Yellow (Yellow) Urine Clarity Clear (Clear) Urine pH 6.0 (5.0-8.0) pH Units Ur Specific [place] 1.019 (1.010-1.025) Urine Protein Trace (Neg-Trace) mg/dL Urine Glucose (UA) >=1000 H (Normal) mg/dL Consult Discharge Plan - Plan Referrals: NONE,PCP [Primary Care Provider] - <Geraldo Palmer - Last Filed: 11/10/18 15:21> Hospitalist Progress Note - Encounter Date of Encounter: 11/10/18 - Exam Vitals: Temp Pulse Resp BP Pulse Ox 98.8 F 82 20 129/69 96 11/10/18 10:38 11/10/18 10:38 11/10/18 10:38 11/10/18 10:38 11/10/18 10:38 - Assessment and Plan (1) Severe sepsis Current Visit: Yes Status: Acute (2) Viral syndrome Current Visit: Yes Status: Acute (3) GE junction carcinoma Current Visit: Yes Status: Chronic (4) Gastroenteritis Current Visit: Yes Status: Acute (5) Abdominal pain Current Visit: Yes Status: Acute (6) Influenza A (H1N1) Current Visit: Yes Status: Acute (7) Constipation Current Visit: Yes Status: Acute - Time Spent with Patient Total time spent is greater than 50% in coordination of care (as documented) at patient's floor/unit and/or counseling patient: Internal Medicine: Result - Labs CBC & Chem 7: 11/10/18 06:20 11/10/18 06:20 Labs: Short CBC 11/10/18 Range/Units 06:20 WBC 5.7 (4.3-11.1) K/mcL Hgb 10.9 L (11.5-15.4) g/dL Hct 32.6 L (35.3-44.9) % Plt Count 114 L (140-400) K/mcL Neutrophils # 3.7 (1.6-8.9) K/mcL BMP 11/10/18 06:20 Sodium 136 Potassium 3.9 Chloride 106 Carbon Dioxide 23 BUN 9 Creatinine 0.66 Glucose 278 H Calcium 8.2 L Liver Function 11/10/18 Range/Units 06:20 Total Bilirubin 0.9 (0.3-1.0) mg/dL AST 19 (13-39) Units/L ALT 21 (7-52) Units/L Alkaline Phosphatase 149 H (34-104) Units/L Albumin 3.0 L (3.5-5.7) g/dL Urine 11/09/18 Range/Units 15:01 Urine Color Dark Yellow (Yellow) Urine Clarity Clear (Clear) Urine pH 6.0 (5.0-8.0) pH Units Ur Specific [place] 1.019 (1.010-1.025) Urine Protein Trace (Neg-Trace) mg/dL Urine Glucose (UA) >=1000 H (Normal) mg/dL - Attending Attestation I examined this patient and my medical decision-making was reviewed with the Resident Physician on 11/10/18. I agree with the documented findings, disposition and treatment plan as described except to the extent set forth below. Ms Roberts is currently admitted for acute influenza with immunocompromised state. She remains moderate to high risk due to potential for worsening clinical status. Ms Roberts has been having some anxiety. She is coughing less today but still congested. No fever over night. Still with some diaphoresis at times. Appreciate ID input. Exam Alert Comfortable at this time Mucus membranes dry Heart reg and not tachy Less rhonchi and wheeze bilaterally Abd soft and nontender No edema now Moves all extremities I/P 1. Acute influenza - completing course of Tamiflu 2. Colitis - on Levaquin and Flagyl. Will complete 7 days. 3. GE junction cancer Further diagnoses and plan as above. Anticipate d/c tomorrow. <Saúl Sol - Last Filed: 11/10/18 14:31> (3) UTI (urinary tract infection) Qualifiers: Urinary tract infection type: acute cystitis Hematuria presence: without hematuria Qualified Code(s): N30.00 - Acute cystitis without hematuria (5) Constipation Qualifiers: Constipation type: slow transit constipation Qualified Code(s): K59.01 - Slow transit constipation <Geraldo Palmer - Last Filed: 11/10/18 15:21> (5) Abdominal pain Qualifiers: Abdominal location: generalized Qualified Code(s): R10.84 - Generalized abdominal pain (7) Constipation Qualifiers: Constipation type: slow transit constipation Qualified Code(s): K59.01 - Slow transit constipation
[2018-11-10] MEDS: metroNIDAZOLE 500 MG TABLET PO SCH ×2 (16:53→20:32)
[2018-11-10] MEDS: Acetaminophen 325 MG TABLET PO PRN (20:42)
[2018-11-11] MEDS: Acetaminophen 325 MG TABLET PO PRN ×2 (04:02→13:12)
[2018-11-11] MEDS ORDERED: *HR* LORazepam 0.5 MG TABLET PO ONE (04:41)
[2018-11-11] MEDS: *HR* Enoxaparin 40 MG/0.4 ML SYRINGE SQ SCH (05:02)
[2018-11-11] MEDS: Ondansetron ODT 4 MG TAB.RAPDIS SL SCH ×3 (05:02→17:34)
[2018-11-11] MEDS: Ringers Solution, Lactated 1,000 ML IVC SCH ×3 (05:08→20:46)
[2018-11-11 05:29] LABS: Basophils % 0.1 %; Hematocrit 33.4 % (35.3-44.9); Hemoglobin 11.2 g/dL (11.5-15.4); Immature Granulocytes % 0.5 % (0-4); Lymphocytes # 1.2 K/mcL (0.6-4.6); Lymphocytes % 14.8 %; Mean Corpuscular HGB Conc 33.5 g/dL (31.6-35.5); Mean Corpuscular Hemoglobin 30.4 pg (28.0-33.3); Mean Corpuscular Volume 90.5 fL (83.0-100.0); Monocytes # 0.9 K/mcL (0.0-1.3); Monocytes % 11.9 %; Neutrophils # 5.8 K/mcL (1.6-8.9); Platelet Count 124 K/mcL (140-400); Red Blood Count 3.69 M/mcL (3.82-4.97); Red Cell Distribution Width 16.4 % (11.5-14.5); Segmented Neutrophils % 72.7 %
[2018-11-11 05:49] LABS: Alanine Aminotransferase 18 Units/L (7-52); Albumin 3.1 g/dL (3.5-5.7); Albumin/Globulin Ratio 1.1 (1.1-2.2); Alkaline Phosphatase 128 Units/L (34-104); Aspartate Amino Transferase 15 Units/L (13-39); BUN/Creatinine Ratio 11 (6-26); Bilirubin,Total 1.1 mg/dL (0.3-1.0); Blood Urea Nitrogen 8 mg/dL (6-20); Calcium 8.3 mg/dL (8.6-10.3); Carbon Dioxide 23 mEq/L (23-29); Chloride 106 mEq/L (98-107); Globulin 2.9 g/dL (2.4-3.5); Glucose 165 mg/dL (70-105); Osmolality,Calculated 286 (280-300); Potassium 3.3 mEq/L (3.5-5.1); Sodium 137 mEq/L (136-145); eGFR For Non-African Americans > 60 (> 60)
[2018-11-11] MEDS: Levofloxacin 750 MG/150 ML 750 MG/150 ML BAG IVPB SCH (08:36)
[2018-11-11] MEDS: predniSONE 20 MG TABLET PO SCH (08:36)
[2018-11-11] MEDS: *HR* Morphine Sulfate SR (12 HR) 15 MG TABLET.ER PO SCH ×2 (08:36→20:28)
[2018-11-11] MEDS: hydrOXYzine pamoate 25 MG CAPSULE PO SCH ×2 (08:36→20:28)
[2018-11-11] MEDS: metroNIDAZOLE 500 MG TABLET PO SCH ×3 (08:37→20:28)
[2018-11-11] MEDS: Insulin LISPRO 300 UNITS/3 ML VIAL SQ SCH ×4 (08:37→20:38)
[2018-11-11] MEDS: CAPECITABINE 500 MG PO SCH ×2 (08:37→20:28)
--- NOTE | 2018-11-11 09:31 | Infectious Disease Progress No ---
Date of Encounter: 11/11/18 Time of Encounter: 09:29 - Assessment and Plan (1) Severe sepsis Current Visit: Yes Status: Acute The patient had 3 sepsis criteria plus lactic acidosis on admission. Likely secondary to influenza and colitis. Improved. White blood cell count has normalized. Febrile overnight with Tmax 102.9. Tachycardia and lactic acidosis have resolved. Blood cultures drawn on 11/06/18 are no growth 2 sets. Recommendations: Continue supportive care for viral syndrome. Droplet precautions for influenza. Continue levaquin 750mg IV daily (day 3). Continue flagyl 500mg PO TID (day 5). Continue tamiflu 75mg PO daily (day 4). Duration of treatment depends on the clinical picture, but likely 5 days of Tamiflu. Recommend a total of 7 days for Levaquin/Flagyl. Can switch to PO Levaquin when ready for discharge. Monitor renal function and dose-adjust antibiotics. (2) Viral syndrome Current Visit: Yes Status: Acute URI likely secondary to influenza A (H1N1/). Flu antigen swab negative, but RIP positive. Clinically improved. Currently day 4 of Tamiflu. (3) Influenza A (H1N1) Current Visit: Yes Status: Acute (4) Colitis Current Visit: Yes Status: Acute CT abdomen and pelvis showed pericolonic inflammatory change in the right upper quadrant adjacent to the descending colon suspicious of mild colitis without adjacent fluid collection. No diarrhea. Currently on Levaquin and Flagyl. (5) Abdominal pain Current Visit: Yes Status: Acute Likely secondary to colitis vs. chronic pain. LFTs improved. Amylase and lipase normal. Pain management per the primary team. Qualifiers: Abdominal location: generalized Qualified Code(s): R10.84 - Generalized abdominal pain (6) Allergy to multiple antibiotics Current Visit: Yes Status: Acute Penicillin: Had the reaction about 5 years ago with difficulty breathing. Recently has taken Augmentin for a foot wound infection and tolerated the Augmentin just fine. Bactrim trouble breathing about 10 years ago. If needed I believe patient should do okay with cephalosporins. 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 PET showed liver mets. Currently on palliative chemotherapy: Oxiplatin, Xeloda, Docetaxel Q3 weeks indefinitely. Last dose 11/03, but patient states developed TITUS with infusion. (8) Tobacco abuse Current Visit: No Status: Chronic (9) Gardnerella vaginitis Current Visit: Yes Status: Acute Noted on vaginal swab 10/27/18 as outpatient. Symptomatic. Currently on Flagyl. - Subjective Interval history: Patient seen and examined. .No acute events noted overnight. Febrile overnight, but denies chills or rigors. Denies chest pain or shortness of breath. States she does have somewhat of a sore throat and had some rhinorrhea overnight with dark brown drainage. She denies cough, nausea, vomiting, or diarrhea. She denies abdominal pain or urinary complaints. She does report vaginal and genital itching. She denies any oral thrush or new skin lesions. Infect Dis PN-Objective Data - Labs CBC & Chem 7: 11/12/18 03:57 11/12/18 03:57 Labs: Laboratory Results - last 24 hr 11/10/18 11/10/18 11/10/18 10:43 16:51 20:17 WBC RBC Hgb Hct MCV MCH MCHC RDW Plt Count MPV Immature Gran % Seg Neutrophils % Lymphocytes % Monocytes % Eosinophils % Basophils % Neutrophils # Lymphocytes # Monocytes # Eosinophils # Basophils # Sodium Potassium Chloride Carbon Dioxide BUN Creatinine Est GFR ( Amer) Est GFR (Non-Af Amer) BUN/Creatinine Ratio Glucose POC Glucose 238 H 268 H 223 H Calculated Osmolality Calcium Total Bilirubin AST ALT Alkaline Phosphatase Troponin I Serum Total Protein Albumin Globulin Albumin/Globulin Ratio 11/11/18 11/11/18 11/11/18 05:17 05:17 05:17 WBC 7.9 RBC 3.69 L Hgb 11.2 L Hct 33.4 L MCV 90.5 MCH 30.4 MCHC 33.5 RDW 16.4 H Plt Count 124 L MPV 12.0 Immature Gran % 0.5 Seg Neutrophils % 72.7 Lymphocytes % 14.8 Monocytes % 11.9 Eosinophils % 0.0 Basophils % 0.1 Neutrophils # 5.8 Lymphocytes # 1.2 Monocytes # 0.9 Eosinophils # 0.0 Basophils # 0.0 Sodium 137 Potassium 3.3 L Chloride 106 Carbon Dioxide 23 BUN 8 Creatinine 0.72 Est GFR ( Amer) > 60 Est GFR (Non-Af Amer) > 60 BUN/Creatinine Ratio 11 Glucose 165 H POC Glucose Calculated Osmolality 286 Calcium 8.3 L Total Bilirubin 1.1 H AST 15 ALT 18 Alkaline Phosphatase 128 H Troponin I < 0.03 Serum Total Protein 6.0 L Albumin 3.1 L Globulin 2.9 Albumin/Globulin Ratio 1.1 Cultures: Cultures 11/07/18 11:30 Urine Culture - Final Urine,Clean Catch No growth. 11/06/18 21:48 Blood Culture - Preliminary Peripheral Venipuncture Culture is incubating and being continuously monitored for growth. Final report to follow. 11/06/18 21:44 Influenza Types A,B Antigen - Final Nasopharyngeal 11/06/18 20:52 Blood Culture - Preliminary Peripheral Venipuncture Culture is incubating and being continuously mon itored for growth. Final report to follow. Serology 11/09/18 11/09/18 11/08/18 Range/Units 15:01 00:45 13:20 Urine Color Dark Yellow (Yellow) Urine Clarity Clear (Clear) Urine pH 6.0 (5.0-8.0) pH Units Ur Specific [place] 1.019 (1.010-1.025) Urine Protein Trace (Neg-Trace) mg/dL Urine Glucose (UA) >=1000 H (Normal) mg/dL Urine Ketones Negative (Negative) mg/dL Urine Blood Negative (Negative) Urine Nitrite Negative (Negative) Urine Bilirubin Negative (Negative) Urine Urobilinogen Normal (Normal) mg/dL Ur Leukocyte Esterase Negative (Negative) Urine Microscopic RBC 5-15 H (0-3) per hpf Urine Microscopic WBC 3-5 H (0-3) per hpf Ur Squamous Epith Cells Many H (None-Few) per lpf Urine Bacteria None Seen (None-Few) per hpf Hyaline Casts None Seen (None-Few) per lpf Ur Culture Indicated? NO (NO) Chlamy pneumoniae PCR Not Detected Not Detected (Not Detect) Adenovirus (PCR) Not Detected Not Detected (Not Detect) B. pertussis DNA (PCR) Not Detected Not Detected (Not Detect) B.parapertussis DNA PCR Not Detected Not Detected (Not Detect) Coronavirus OC43 (PCR) Not Detected Not Detected (Not Detect) Coronavirus HKU1 (PCR) Not Detected Not Detected (Not Detect) Coronavirus 229E (PCR) Not Detected Not Detected (Not Detect) Coronavirus NL63 (PCR) Not Detected Not Detected (Not Detect) Human Metapneumovir PCR Not Detected Not Detected (Not Detect) Influenza A (H1) PCR Not Detected Not Detected (Not Detect) Influ A (H1N1/09) PCR DETECTED A DETECTED A (Not Detect) Influenza A (H3) PCR Not Detected Not Detected (Not Detect) Influenza A Untype (PCR) Not Detected Not Detected (Not Detect) Influenza Type B (PCR) Not Detected Not Detected (Not Detect) M.pneumoniae DNA (PCR) Not Detected Not Detected (Not Detect) Parainfluenza 1 (PCR) Not Detected Not Detected (Not Detect) Parainfluenza 2 (PCR) Not Detected Not Detected (Not Detect) Parainfluenza 3 (PCR) Not Detected Not Detected (Not Detect) Parainfluenza 4 (PCR) Not Detected Not Detected (Not Detect) RSV (PCR) Not Detected Not Detected (Not Detect) Entero/Rhino (PCR) Not Detected Not Detected (Not Detect) 11/07/18 11/06/18 Range/Units 11:30 21:06 Urine Color Dark Yellow Dark Yellow (Yellow) Urine Clarity Clear Cloudy A (Clear) Urine pH 6.0 6.0 (5.0-8.0) pH Units Ur Specific [place] 1.022 1.022 (1.010-1.025) Urine Protein 30 H 100 H (Neg-Trace) mg/dL Urine Glucose (UA) >=1000 H 250 H (Normal) mg/dL Urine Ketones Negative Negative (Negative) mg/dL Urine Blood Small H Large H (Negative) Urine Nitrite Negative Negative (Negative) Urine Bilirubin Negative Negative (Negative) Urine Urobilinogen 2.0 H Normal (Normal) mg/dL Ur Leukocyte Esterase Negative Small H (Negative) Urine Microscopic RBC 0-3 0-3 (0-3) per hpf Urine Microscopic WBC 5-15 H 30-50 H (0-3) per hpf Ur Squamous Epith Cells Many H Many H (None-Few) per lpf Urine Bacteria Few Moderate H (None-Few) per hpf Hyaline Casts None Seen None Seen (None-Few) per lpf Ur Culture Indicated? NO NO. A (NO) Chlamy pneumoniae PCR (Not Detect) Adenovirus (PCR) (Not Detect) B. pertussis DNA (PCR) (Not Detect) B.parapertussis DNA PCR (Not Detect) Coronavirus OC43 (PCR) (Not Detect) Coronavirus HKU1 (PCR) (Not Detect) Coronavirus 229E (PCR) (Not Detect) Coronavirus NL63 (PCR) (Not Detect) Human Metapneumovir PCR (Not Detect) Influenza A (H1) PCR (Not Detect) Influ A (H1N1/09) PCR (Not Detect) Influenza A (H3) PCR (Not Detect) Influenza A Untype (PCR) (Not Detect) Influenza Type B (PCR) (Not Detect) M.pneumoniae DNA (PCR) (Not Detect) Parainfluenza 1 (PCR) (Not Detect) Parainfluenza 2 (PCR) (Not Detect) Parainfluenza 3 (PCR) (Not Detect) Parainfluenza 4 (PCR) (Not Detect) RSV (PCR) (Not Detect) Entero/Rhino (PCR) (Not Detect) Exam - Constitutional Vitals: Temp Pulse Resp BP Pulse Ox 99.6 F 95 20 114/77 96 11/11/18 07:00 11/11/18 07:00 11/11/18 07:00 11/11/18 07:00 11/11/18 07:00 General appearance: cooperative, no acute distress, obese - Head Head exam: Present: atraumatic, normal inspection, normocephalic - Eye Eye exam: Present: EOMI, normal appearance, PERRL Pupils: Present: normal accommodation - ENT ENT exam: Present: mucous membranes moist - Neck Neck exam: Present: normal inspection - Respiratory Respiratory exam: Present: CTAB. Absent: rales, respiratory distress, rhonchi, wheezes - Cardiovascular Cardiovascular exam: Present: RRR, +S1, +S2 - GI/Abdominal GI/Abdominal exam: Present: distended (obese), normal bowel sounds, soft, tenderness (RUQ) - Extremities Exam Extremities exam: Present: normal inspection. Absent: joint swelling, pedal edema, tenderness - Neurological Exam Neurological exam: Present: alert, oriented X3, no focal deficits - Psychiatric Psychiatric exam: Present: normal affect, normal mood - Skin Skin exam: Present: dry, intact, normal color, warm Consult Discharge Plan - Plan Referrals: NONE,PCP [Primary Care Provider] - - Attending Attestation I examined this patient and my medical decision-making was reviewed with the Resident Physician. I agree with the documented findings, disposition and treatment plan as described except to the extent set forth below.
--- NOTE | 2018-11-11 10:11 | Internal Med Progress Note ---
<Geraldo Palmer - Last Filed: 11/11/18 14:27> Hospitalist Progress Note - Encounter Date of Encounter: 11/11/18 - Exam Vitals: Temp Pulse Resp BP Pulse Ox 101 F H 91 18 124/71 97 11/11/18 10:42 11/11/18 10:42 11/11/18 11:31 11/11/18 10:42 11/11/18 11:31 - Assessment and Plan (1) Severe sepsis Current Visit: Yes Status: Acute (2) Viral syndrome Current Visit: Yes Status: Acute (3) GE junction carcinoma Current Visit: Yes Status: Chronic (4) Gastroenteritis Current Visit: Yes Status: Acute (5) Abdominal pain Current Visit: Yes Status: Acute (6) Influenza A (H1N1) Current Visit: Yes Status: Acute (7) Constipation Current Visit: Yes Status: Acute - Time Spent with Patient Total time spent is greater than 50% in coordination of care (as documented) at patient's floor/unit and/or counseling patient: Internal Medicine: Result - Labs CBC & Chem 7: 11/11/18 05:17 11/11/18 05:17 Labs: Short CBC 11/11/18 Range/Units 05:17 WBC 7.9 (4.3-11.1) K/mcL Hgb 11.2 L (11.5-15.4) g/dL Hct 33.4 L (35.3-44.9) % Plt Count 124 L (140-400) K/mcL Neutrophils # 5.8 (1.6-8.9) K/mcL BMP 11/11/18 05:17 Sodium 137 Potassium 3.3 L Chloride 106 Carbon Dioxide 23 BUN 8 Creatinine 0.72 Glucose 165 H Calcium 8.3 L Cardiac Enzymes 11/11/18 Range/Units 05:17 Troponin I < 0.03 (< 0.04) ng/mL Liver Function 11/11/18 Range/Units 05:17 Total Bilirubin 1.1 H (0.3-1.0) mg/dL AST 15 (13-39) Units/L ALT 18 (7-52) Units/L Alkaline Phosphatase 128 H (34-104) Units/L Albumin 3.1 L (3.5-5.7) g/dL Consult Discharge Plan - Plan Referrals: NONE,PCP [Primary Care Provider] - - Attending Attestation I examined this patient and my medical decision-making was reviewed with the Resident Physician on 11/11/18. I agree with the documented findings, disposition and treatment plan as described except to the extent set forth below. Ms Roberts is currently admitted for acute influenza and colitis. She remains moderate to high risk due to potential for worsening clinical status. Ms Roberts temp of 102.9 last night. No fever now. Says she had some L side chest pain at that time. None now. Also had some loose stool but none now. Had lower abd discomfort when febrile. Exam alert Comfortable now Mucus membranes dry Heart reg - not tachy at this time Lungs with wheeze on R, diminished on L. No rales or rhonchi Abd soft and nontender currently No edema I/P 1. Influenza - febrile again last night. On Tamiflu 2. Continue abx per ID 3. Repeat CXR and consider chest CT due to pain yesterday 4. GE junction cancer Further diagnoses and plan as above. <Saúl Sol - Last Filed: 11/11/18 16:27> Hospitalist Progress Note - Encounter Date of Encounter: 11/11/18 Time of Encounter: 16:27 - Subjective Interval History: Tami Roberts is a 48 year old female with past medical history of adenocarcinoma at GE junction on chemotherapy at [facility], who presented to the emergency department with complaint of nausea, vomiting, fevers, diarrhea starting 11/07. Patient continuing to take home QD chemotherapy medications while in hospital Patient found to have H1N1 Influenza A and started on Oseltamivir by ID on 11/08 Patient admits to "nervousness" and had one episode of tingling in extremities and a globus sensation in throat on 11/09. Patient given 25mg Benadryl for symptoms management. Patient reports to fever overnight as well as chills. Fever noted to be 102.9 degrees Fahrenheit. Patient also admits to chest pain and increasing dyspnea- made worse with ambulation. Patient states that she has been feeling flushed Upon initial evaluation this AM, patient was sitting upright in bed. Patient admits to chest pain overnight, as well as increasing dyspnea, fever/chills, and flushing, as well as nausea and right lower quadrant abdominal pain-which patient states been going on for some time prior to hospitalization. Patient denies headache, vision change, tinnitus, current CP/SOB, vomiting or diarrhea, paresthesias or difficulty ambulating. Patient has no concerns, questions, or complaints this time. - Exam Vitals: Temp Pulse Resp BP Pulse Ox 99.6 F 95 20 114/77 96 11/11/18 07:00 11/11/18 07:00 11/11/18 07:00 11/11/18 07:00 11/11/18 07:00 Exam: Constitutional: Patient is awake, alert, pleasant, engaged to conversation, answers questions appropriately, is in no acute distress, no focal neurological deficits appreciated HEENT: Atraumatic, normocephalic, PERRL, EOMI, trachea midline, no thyromegaly noted, Cardiovascular: rhythm rate regular, no murmurs, gallops, or rubs appreciated. Respiratory: Inspiratory wheeze noted to right upper, middle, and lower lung faustin. Inspiratory wheeze noted in left base-which appears to be transmitted from right lung faustin Abdomen: Tenderness noted in the right lower quadrant without rebound, no guarding. Abdomen is soft, obese, nondistended, Skin: Warm, dry, intact, no new bruises, rashes, or bleeding appreciated and visualized areas. Psychiatric: Patient appears to be anxious Neurological: Patient moving all 4 extremities spontaneously, no overt neurological deficit noted - Assessment and Plan (1) Influenza A (H1N1) Current Visit: Yes Status: Acute (2) Gastroenteritis Current Visit: Yes Status: Acute (3) UTI (urinary tract infection) Current Visit: Yes Status: Suspected (4) GE junction carcinoma Current Visit: Yes Status: Chronic (5) Constipation Current Visit: Yes Status: Acute (6) Tobacco abuse Current Visit: No Status: Chronic (7) Hypokalemia Current Visit: Yes Status: Acute (8) Protein malnutrition Current Visit: Yes Status: Acute DVT Prophylaxis: Lovenox 40mg SQ QAM - Summary of Assessment and Plan Summary of Assessment and Plan: (1) Influenza A (H1N1) Current Visit: Yes Status: Acute Assessment and Plan: Currently afebrile, non tachycardic, non-tachypnic, normotensive, O2 saturation at 96% on RA Droplet precautions WBC 7.9 no shift Respiratory panel POSITIVE for Influenza A Patient c/o sore throat on 11/10/18 - ordered Q2H PRN Cepacol sore throat lozenge ID consulted and is following -Plan Continue Oseltamivir (day 4 of 5) Concern for increasing dyspnea in setting of right sided inspiratory wheeze-we will order chest x-ray PA and lateral to further assess. -DuoNebs Q6HR -Consider repeat blood cultures (2) Gastroenteritis Current Visit: Yes Status: Acute Assessment and Plan: CT abd/pelvis shows mild colitis ID consulted and is following Continue Levaquin (day 3) + Flagyl (day 5) (3) UTI (urinary tract infection) Current Visit: Yes Status: Suspected Assessment and Plan: Urinalysis normal 150mg fluconazole ONCE on 11/09/18 to cover for potential yeast infection Urine culture showed no growth Blood cultures show no growth to date ID consulted and is following Continue Levaquin + Flagyl (4) GE junction carcinoma Current Visit: Yes Status: Chronic Assessment and Plan: - Known history on chemotherapy - We will continue chemotherapy while inpatient - Further management per oncologist once discharged (5) Constipation Current Visit: Yes Status: Acute Assessment and Plan: Patient reported 3 days constipation on 11/09 - started on Miralax 17gm/day Patient admits to 3x BM yesterday after Miralax and another 3x BM today after repeat dosing - will d/c Miralax (6) Tobacco abuse Current Visit: No Status: Chronic Assessment and Plan: Patient has a 60 pack year smoking history - quit in August of 2018 Inspiratory wheeze noted to auscultation on RIGHT lung faustin - concern for developing pneumonia vs. bronchitis Patient started on 40mg Prednisone PO daily on 11/09 - will continue DuoNebs scheduled Q6HR (7) Hypokalemia Current Visit: Yes Status: Acute Assessment and Plan: Potassium value noted at 3.3 today - will replace with 40mEq PO once (8) Protein malnutrition Current Visit: Yes Status: Acute Assessment and Plan: -Continue high protein diet supplementation BID - Time Spent with Patient Total time spent is greater than 50% in coordination of care (as documented) at patient's floor/unit and/or counseling patient: Internal Medicine: Result - Labs CBC & Chem 7: 11/11/18 05:17 11/11/18 05:17 Labs: Short CBC 11/11/18 Range/Units 05:17 WBC 7.9 (4.3-11.1) K/mcL Hgb 11.2 L (11.5-15.4) g/dL Hct 33.4 L (35.3-44.9) % Plt Count 124 L (140-400) K/mcL Neutrophils # 5.8 (1.6-8.9) K/mcL BMP 11/11/18 05:17 Sodium 137 Potassium 3.3 L Chloride 106 Carbon Dioxide 23 BUN 8 Creatinine 0.72 Glucose 165 H Calcium 8.3 L Cardiac Enzymes 11/11/18 Range/Units 05:17 Troponin I < 0.03 (< 0.04) ng/mL Liver Function 11/11/18 Range/Units 05:17 Total Bilirubin 1.1 H (0.3-1.0) mg/dL AST 15 (13-39) Units/L ALT 18 (7-52) Units/L Alkaline Phosphatase 128 H (34-104) Units/L Albumin 3.1 L (3.5-5.7) g/dL <Geraldo Palmer - Last Filed: 11/11/18 14:27> (5) Abdominal pain Qualifiers: Abdominal location: generalized Qualified Code(s): R10.84 - Generalized abdominal pain (7) Constipation Qualifiers: Constipation type: slow transit constipation Qualified Code(s): K59.01 - Slow transit constipation <Saúl Sol - Last Filed: 11/11/18 16:27> (3) UTI (urinary tract infection) Qualifiers: Urinary tract infection type: acute cystitis Hematuria presence: without hematuria Qualified Code(s): N30.00 - Acute cystitis without hematuria (5) Constipation Qualifiers: Constipation type: slow transit constipation Qualified Code(s): K59.01 - Slow transit constipation
[2018-11-11] MEDS: Ipratropium/Albuterol Neb 3 ML IH SCH ×3 (11:28→23:28)
[2018-11-11] MEDS ORDERED: Isovue-370 500 ML INFUS..BTL IV ONE (15:11)
--- NOTE | 2018-11-11 16:34 | Electrocardiograph Report ---
[place] [address] Test Date: 2018-11-11 Pat Name: Tami Roberts Department: 109 Room: 2A43 Gender: F Wool Dyer: ANH : 1970 Requested By: [id number] Order Number: [id number] Reading MD: Jordin Hansen Measurements Intervals [place] Rate: 98 P: 38 IA: 137 QRS: 7 QRSD: 90 T: 18 QT: 359 QTc: 414 Interpretive Statements SINUS RHYTHM MODERATE VOLTAGE CRITERIA FOR LVH, CONSIDER NORMAL VARIANT Electronically Signed On 11-11-2018 16:32:44 EST by Jordin Hansen
[2018-11-11] MEDS: *HR* LORazepam 1 MG TABLET PO PRN (17:39)
[2018-11-12] MEDS: Ipratropium/Albuterol Neb 3 ML IH SCH ×2 (04:16→10:40)
[2018-11-12] MEDS: Acetaminophen 325 MG TABLET PO PRN ×2 (04:25→08:29)
[2018-11-12 04:43] LABS: Hematocrit 34.7 % (35.3-44.9); Hemoglobin 11.6 g/dL (11.5-15.4); Immature Granulocytes % 0.6 % (0-4); Lymphocytes # 1.8 K/mcL (0.6-4.6); Lymphocytes % 22.7 %; Mean Corpuscular HGB Conc 33.4 g/dL (31.6-35.5); Mean Corpuscular Hemoglobin 30.9 pg (28.0-33.3); Mean Corpuscular Volume 92.5 fL (83.0-100.0); Mean Platelet Volume 12.6 fL (9.4-12.4); Monocytes # 0.6 K/mcL (0.0-1.3); Monocytes % 7.9 %; Neutrophils # 5.3 K/mcL (1.6-8.9); Platelet Count 123 K/mcL (140-400); Red Blood Count 3.75 M/mcL (3.82-4.97); Segmented Neutrophils % 68.8 %
[2018-11-12 05:03] LABS: Alanine Aminotransferase 18 Units/L (7-52); Albumin 3.1 g/dL (3.5-5.7); Alkaline Phosphatase 132 Units/L (34-104); Aspartate Amino Transferase 15 Units/L (13-39); BUN/Creatinine Ratio 10 (6-26); Bilirubin,Total 0.8 mg/dL (0.3-1.0); Blood Urea Nitrogen 8 mg/dL (6-20); Calcium 8.7 mg/dL (8.6-10.3); Carbon Dioxide 26 mEq/L (23-29); Chloride 105 mEq/L (98-107); Globulin 3.2 g/dL (2.4-3.5); Glucose 255 mg/dL (70-105); Osmolality,Calculated 295 (280-300); Sodium 139 mEq/L (136-145); Total Protein 6.3 g/dL (6.4-8.9); eGFR For Non-African Americans > 60 (> 60)
[2018-11-12] MEDS: *HR* Enoxaparin 40 MG/0.4 ML SYRINGE SQ SCH (06:11)
[2018-11-12] MEDS: Ondansetron ODT 4 MG TAB.RAPDIS SL SCH ×3 (06:12→13:57)
[2018-11-12] MEDS: Insulin LISPRO 300 UNITS/3 ML VIAL SQ SCH ×2 (08:27→13:57)
[2018-11-12] MEDS: metroNIDAZOLE 500 MG TABLET PO SCH ×2 (08:28→13:57)
[2018-11-12] MEDS: CAPECITABINE 500 MG PO SCH (08:28)
[2018-11-12] MEDS: predniSONE 20 MG TABLET PO SCH (08:28)
[2018-11-12] MEDS: *HR* Morphine Sulfate SR (12 HR) 15 MG TABLET.ER PO SCH (08:29)
[2018-11-12] MEDS: hydrOXYzine pamoate 25 MG CAPSULE PO SCH (08:29)
[2018-11-12 10:48] VITALS: BP 101/67
[2018-11-12] MEDS: Ringers Solution, Lactated 1,000 ML IVC SCH (10:50)
[2018-11-12] MEDS: Levofloxacin 750 MG/150 ML 750 MG/150 ML BAG IVPB SCH (10:50)
--- NOTE | 2018-11-12 11:22 | Infectious Disease Progress No ---
Date of Encounter: 11/12/18 Time of Encounter: 11:20 - Assessment and Plan (1) Severe sepsis Status: Acute The patient had 3 sepsis criteria plus lactic acidosis on admission. Likely secondary to influenza and colitis. Improved. White blood cell count has normalized. Febrile overnight with Tmax 100.2. Tachycardia and lactic acidosis have resolved. Blood cultures drawn on 11/06/18 are negative 2 sets. Recommendations: Continue supportive care for viral syndrome. Droplet precautions for influenza. Continue levaquin 750mg IV daily (day 4). Continue flagyl 500mg PO TID (day 6). Continue tamiflu 75mg PO daily (day 5). Discontiue after dose today. Duration of treatment depends on the clinical picture, but likely 5 days of Tamiflu. Recommend a total of 7 days for Levaquin/Flagyl. Can switch to PO Levaquin when ready for discharge. Monitor renal function and dose-adjust antibiotics. (2) Viral syndrome Status: Acute URI likely secondary to influenza A (H1N1/). Flu antigen swab negative, but RIP positive. Clinically improved, but still having fevers. Fevers can last up to 7-10 days. Currently day 5 of Tamiflu. (3) Influenza A (H1N1) Status: Acute (4) Colitis Status: Acute CT abdomen and pelvis showed pericolonic inflammatory change in the right upper quadrant adjacent to the descending colon suspicious of mild colitis without adjacent fluid collection. No diarrhea. Currently on Levaquin and Flagyl. (5) Abdominal pain Status: Acute Likely secondary to colitis vs. chronic pain. LFTs improved. Amylase and lipase normal. Pain management per the primary team. Qualifiers: Abdominal location: generalized Qualified Code(s): R10.84 - Generalized abdominal pain (6) Allergy to multiple antibiotics Status: Acute Penicillin: Had the reaction about 5 years ago with difficulty breathing. Kayla baker has taken Augmentin for a foot wound infection and tolerated the Augmentin just fine. Bactrim trouble breathing about 10 years ago. If needed I believe patient should do okay with cephalosporins. 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 Currently on palliative chemotherapy: Oxiplatin, Xeloda, Docetaxel Q3 weeks indefinitely. Last dose 11/03, but patient states developed TITUS with infusion. (8) Tobacco abuse Status: Chronic (9) Gardnerella vaginitis Status: Acute Noted on vaginal swab 10/27/18 as outpatient. Symptomatic. Currently on Flagyl. - Subjective Interval history: Patient seen and examined. No acute events noted overnight. Febrile overnight, but denies chills or rigors, but does report sweating. Denies chest pain or shortness of breath. States rhinorrhea improved. She denies cough, nausea, vomiting, or diarrhea. Reports loose stool this morning. She denies urinary complaints and states right sided abdominal pain is chronic. She does report vaginal and genital itching that is improved today. She denies any oral thrush or new skin lesions. Infect Dis PN-Objective Data - Labs CBC & Chem 7: 11/12/18 03:57 11/12/18 03:57 Labs: Laboratory Results - last 24 hr 11/11/18 11/11/18 11/11/18 07:06 10:49 16:04 WBC RBC Hgb Hct MCV MCH MCHC RDW Plt Count MPV Immature Gran % Seg Neutrophils % Lymphocytes % Monocytes % Eosinophils % Basophils % Neutrophils # Lymphocytes # Monocytes # Eosinophils # Basophils # Sodium Potassium Chloride Carbon Dioxide BUN Creatinine Est GFR ( Amer) Est GFR (Non-Af Amer) BUN/Creatinine Ratio Glucose POC Glucose 150 H 201 H 250 H Calculated Osmolality Calcium Total Bilirubin AST ALT Alkaline Phosphatase Serum Total Protein Albumin Globulin Albumin/Globulin Ratio 11/11/18 11/12/18 11/12/18 20:37 03:57 03:57 WBC 7.7 RBC 3.75 L Hgb 11.6 Hct 34.7 L MCV 92.5 MCH 30.9 MCHC 33.4 RDW 17.0 H Plt Count 123 L MPV 12.6 H Immature Gran % 0.6 Seg Neutrophils % 68.8 Lymphocytes % 22.7 Monocytes % 7.9 Eosinophils % 0.0 Basophils % 0.0 Neutrophils # 5.3 Lymphocytes # 1.8 Monocytes # 0.6 Eosinophils # 0.0 Basophils # 0.0 Sodium 139 Potassium 4.0 Chloride 105 Carbon Dioxide 26 BUN 8 Creatinine 0.81 Est GFR ( Amer) > 60 Est GFR (Non-Af Amer) > 60 BUN/Creatinine Ratio 10 Glucose 255 H POC Glucose 284 H Calculated Osmolality 295 Calcium 8.7 Total Bilirubin 0.8 AST 15 ALT 18 Alkaline Phosphatase 132 H Serum Total Protein 6.3 L Albumin 3.1 L Globulin 3.2 Albumin/Globulin Ratio 1.0 L Cultures: Cultures 11/06/18 21:48 Blood Culture - Final Peripheral Venipuncture No growth. Final report. 11/06/18 20:52 Blood Culture - Final Peripheral Venipuncture No growth. Final report. 11/07/18 11:30 Urine Culture - Final Urine,Clean Catch No growth. 11/06/18 21:44 Influenza Types A,B Antigen - Final Nasopharyngeal Serology 11/09/18 11/09/18 11/08/18 Range/Units 15:01 00:45 13:20 Urine Color Dark Yellow (Yellow) Urine Clarity Clear (Clear) Urine pH 6.0 (5.0-8.0) pH Units Ur Specific [place] 1.019 (1.010-1.025) Urine Protein Trace (Neg-Trace) mg/dL Urine Glucose (UA) >=1000 H (Normal) mg/dL Urine Ketones Negative (Negative) mg/dL Urine Blood Negative (Negative) Urine Nitrite Negative (Negative) Urine Bilirubin Negative (Negative) Urine Urobilinogen Normal (Normal) mg/dL Ur Leukocyte Esterase Negative (Negative) Urine Microscopic RBC 5-15 H (0-3) per hpf Urine Microscopic WBC 3-5 H (0-3) per hpf Ur Squamous Epith Cells Many H (None-Few) per lpf Urine Bacteria None Seen (None-Few) per hpf Hyaline Casts None Seen (None-Few) per lpf Ur Culture Indicated? NO (NO) Chlamy pneumoniae PCR Not Detected Not Detected (Not Detect) Adenovirus (PCR) Not Detected Not Detected (Not Detect) B. pertussis DNA (PCR) Not Detected Not Detected (Not Detect) B.parapertussis DNA PCR Not Detected Not Detected (Not Detect) Coronavirus OC43 (PCR) Not Detected Not Detected (Not Detect) Coronavirus HKU1 (PCR) Not Detected Not Detected (Not Detect) Coronavirus 229E (PCR) Not Detected Not Detected (Not Detect) Coronavirus NL63 (PCR) Not Detected Not Detected (Not Detect) Human Metapneumovir PCR Not Detected Not Detected (Not Detect) Influenza A (H1) PCR Not Detected Not Detected (Not Detect) Influ A (H1N1/09) PCR DETECTED A DETECTED A (Not Detect) Influenza A (H3) PCR Not Detected Not Detected (Not Detect) Influenza A Untype (PCR) Not Detected Not Detected (Not Detect) Influenza Type B (PCR) Not Detected Not Detected (Not Detect) M.pneumoniae DNA (PCR) Not Detected Not Detected (Not Detect) Parainfluenza 1 (PCR) Not Detected Not Detected (Not Detect) Parainfluenza 2 (PCR) Not Detected Not Detected (Not Detect) Parainfluenza 3 (PCR) Not Detected Not Detected (Not Detect) Parainfluenza 4 (PCR) Not Detected Not Detected (Not Detect) RSV (PCR) Not Detected Not Detected (Not Detect) Entero/Rhino (PCR) Not Detected Not Detected (Not Detect) 11/07/18 11/06/18 Range/Units 11:30 21:06 Urine Color Dark Yellow Dark Yellow (Yellow) Urine Clarity Clear Cloudy A (Clear) Urine pH 6.0 6.0 (5.0-8.0) pH Units Ur Specific [place]ge 1.022 1.022 (1.010-1.025) Urine Protein 30 H 100 H (Neg-Trace) mg/dL Urine Glucose (UA) >=1000 H 250 H (Normal) mg/dL Urine Ketones Negative Negative (Negative) mg/dL Urine Blood Small H Large H (Negative) Urine Nitrite Negative Negative (Negative) Urine Bilirubin Negative Negative (Negative) Urine Urobilinogen 2.0 H Normal (Normal) mg/dL Ur Leukocyte Esterase Negative Small H (Negative) Urine Microscopic RBC 0-3 0-3 (0-3) per hpf Urine Microscopic WBC 5-15 H 30-50 H (0-3) per hpf Ur Squamous Epith Cells Many H Many H (None-Few) per lpf Urine Bacteria Few Moderate H (None-Few) per hpf Hyaline Casts None Seen None Seen (None-Few) per lpf Ur Culture Indicated? NO NO. A (NO) Chlamy pneumoniae PCR (Not Detect) Adenovirus (PCR) (Not Detect) B. pertussis DNA (PCR) (Not Detect) B.parapertussis DNA PCR (Not Detect) Coronavirus OC43 (PCR) (Not Detect) Coronavirus HKU1 (PCR) (Not Detect) Coronavirus 229E (PCR) (Not Detect) Coronavirus NL63 (PCR) (Not Detect) Human Metapneumovir PCR (Not Detect) Influenza A (H1) PCR (Not Detect) Influ A (H1N1/09) PCR (Not Detect) Influenza A (H3) PCR (Not Detect) Influenza A Untype (PCR) (Not Detect) Influenza Type B (PCR) (Not Detect) M.pneumoniae DNA (PCR) (Not Detect) Parainfluenza 1 (PCR) (Not Detect) Parainfluenza 2 (PCR) (Not Detect) Parainfluenza 3 (PCR) (Not Detect) Parainfluenza 4 (PCR) (Not Detect) RSV (PCR) (Not Detect) Entero/Rhino (PCR) (Not Detect) - Impressions Impressions Chest X-Ray 11/11/18 09:29 IMPRESSION: No radiographic evidence of acute cardiopulmonary process. D/ / Waldo Maya MD / Waldo Maya MD Interpreting Provider: Waldo Maya MD Chest CTA 11/11/18 18:30 IMPRESSION: 1. No evidence of pulmonary embolism or other acute process in the chest. 2. Multiple large enhancing masses in the liver grossly unchanged from 09/08/2018. 3. Two pulmonary micronodules in the right upper lobe without significant change from 09/08/2018. See recommendations below. RECOMMENDATIONS: Fleischner Society guidelines for follow-up and management of incidentally detected pulmonary nodules: Multiple Solid Nodules: Nodule size less than 6 mm In a high-risk patient, optional CT at 12 months. - Low risk patients include individuals with minimal or absent history of smoking and other known risk factors. - High risk patients include individuals with a history or smoking or known risk factors. Radiology 2017 http://pubs.rsna.org/doi/full/10.1148/radiol.5831004573 D/ / Huy Russ MD / Huy Russ MD Interpreting Provider: Huy Russ MD Exam - Constitutional Vitals: Temp Pulse Resp BP Pulse Ox 100.2 F H 98 16 101/67 98 11/12/18 10:47 11/12/18 10:47 11/12/18 10:47 11/12/18 10:47 11/12/18 10:47 General appearance: average body habitus, cooperative, no acute distress - Head Head exam: Present: atraumatic, normal inspection, normocephalic - Eye Eye exam: Present: EOMI, normal appearance, PERRL Pupils: Present: normal accommodation - ENT ENT exam: Present: mucous membranes moist - Neck Neck exam: Present: normal inspection - Respiratory Respiratory exam: Present: CTAB. Absent: rales, respiratory distress, rhonchi, wheezes - Cardiovascular Cardiovascular exam: Present: RRR, +S1, +S2 - GI/Abdominal GI/Abdominal exam: Present: normal bowel sounds, soft, tenderness (RLQ). Absent: distended - Extremities Exam Extremities exam: Present: normal inspection. Absent: joint swelling, pedal edema, tenderness - Neurological Exam Neurological exam: Present: alert, oriented X3, no focal deficits - Psychiatric Psychiatric exam: Present: normal affect, normal mood - Skin Skin exam: Present: dry, intact, normal color, warm Consult Discharge Plan - Plan Referrals: Shivam Pham [Resident] - 11/16/18 4:00 pm ([facility]) Prescriptions: Levofloxacin [Levaquin] 750 mg PO DAILY 3 Days #3 tablet RX: metroNIDAZOLE [Flagyl] 500 mg PO TID #4 tablet RX: Oseltamivir [Tamiflu] 75 mg PO BID #1 capsule - Attending Attestation I examined this patient and my medical decision-making was reviewed with the Resident Physician. I agree with the documented findings, disposition and treatment plan as described except to the extent set forth below.
--- NOTE | 2018-11-12 13:35 | Discharge Summary ---
<Saúl Sol - Last Filed: 11/12/18 14:14> - NOTES TO OUTPATIENT PROVIDER Notes to Outpatient Provider: Patient to follow-up with [facility] hematology oncology as per their recommendations. Patient to follow-up with [facility] as per their recommendations Date of Encounter: 11/12/18 Time of Encounter: 13:36 - Discharge Diagnosis (1) Influenza A (H1N1) Priority: Primary Status: Acute (2) Gastroenteritis Priority: Primary Status: Acute (3) UTI (urinary tract infection) Priority: Secondary Status: Suspected Qualifiers: Urinary tract infection type: acute cystitis Hematuria presence: without hematuria Qualified Code(s): N30.00 - Acute cystitis without hematuria (4) GE junction carcinoma Priority: Secondary Status: Chronic (5) Constipation Priority: Secondary Status: Acute Qualifiers: Constipation type: slow transit constipation Qualified Code(s): K59.01 - Slow transit constipation (6) Tobacco abuse Priority: Secondary Status: Chronic (7) Hypokalemia Priority: Secondary Status: Acute (8) Protein malnutrition Priority: Secondary Status: Acute Hospital course: Tami Roberts is a 48 year old female with past medical history of adenocarcinoma at GE junction on chemotherapy at [facility], who presented to the emergency department with complaint of nausea, vomiting, fevers, diarrhea starting 11/07. Patient continuing to take home QD chemotherapy medications while in hospital Patient found to have H1N1 Influenza A and started on Oseltamivir by ID on 11/08 Patient admits to "nervousness" and had one episode of tingling in extremities and a globus sensation in throat on 11/09. Patient given 25mg Benadryl for symptoms management which led to resolution of symptoms. Patient noted to have right-sided wheeze noted on auscultation - patient was started on 40 mg of prednisone by mouth daily on November 09 Due to these clinical symptoms in the setting of known cancer and chemotherapy in conjunction with diagnosis of influenza and stated ambulatory dyspnea, further workup was performed with Chest x-ray on November 11 showing "no radiographic evidence of acute pulmonary process", and CTA performed on November 11 showed "no evidence of pulmonary embolism or other acute process in the chest." Patient noted to have recurrent, low-grade fevers while in hospital, well- managed on Tylenol. Per ID consultation fevers due to viral syndrome may last up to 7-10 days. Patient to be discharged home with final dose of Oseltamivir, as well as continued Levaquin and Flagyl for the treatment of influenza and colitis. Discharge planning discussed with patient at length as well as return precautions. Patient given time to ask questions, and has no concerns or complaints at this time. Patient verbalizes her understanding and agreement with this plan. Discharge discussed with: patient - Time Spent with Patient Total time spent providing and/or coordinating discharge services: - Discharge Medications Prescriptions: Levofloxacin [Levaquin] 750 mg PO DAILY 3 Days #3 tablet metroNIDAZOLE [Flagyl] 500 mg PO TID #4 tablet Oseltamivir [Tamiflu] 75 mg PO BID #1 capsule Home Medications: Morphine Sulfate SR (12 HR) [MS Contin] 1 tab PO BID 30 Days #60 tab 09/10/18 [Rx] Omeprazole 20 mg PO DAILY #30 tab. 09/22/18 [Rx] Prochlorperazine Maleate [Compazine] 10 mg PO Q6HR PRN #30 tablet 09/22/18 [Rx] Capecitabine [Xeloda] 4 tab PO BID 11/07/18 [History] LORazepam [Ativan] 1 mg PO Q6H PRN 11/07/18 [History] Oxycodone HCl 2 tab PO Q6H PRN 11/07/18 [History] Levofloxacin [Levaquin] 750 mg PO DAILY 3 Days #3 tablet 11/12/18 [Rx] Oseltamivir [Tamiflu] 75 mg PO BID #1 capsule 11/12/18 [Rx] metroNIDAZOLE [Flagyl] 500 mg PO TID #4 tablet 11/12/18 [Rx] Allergies/Adverse Reactions: Allergy/AdvReac Type Severity Reaction Status Date / Time Sulfa (Sulfonamide Allergy Severe Difficulty Verified 10/04/18 22:17 Antibiotics) Breathing Penicillins AdvReac Difficulty Verified 10/04/18 22:17 Breathing Date of admission: 11/08/18 17:43 Primary care physician: PCP NONE Consults: 11/07/18 00:04 Consult to Nutrition [CONS] Routine Comment: Consulting Provider: NUTRITION Reason for Dietary Consult: MST Score 11/08/18 12:45 Consult to Infectious Diseases [CONS] Routine Consulting Provider: Infectious Disease [facility] Reason for Consult: Fevers, N/V/D, on Chemotherapy Time Notified: 12:45 Call Completed: Yes Discharging clinician: Saúl Sol Anticipated date of discharge: 11/12/18 - Constitutional Vitals: Temp Pulse Resp BP Pulse Ox 100.2 F H 98 16 101/67 98 11/12/18 10:47 11/12/18 10:47 11/12/18 10:47 11/12/18 10:47 11/12/18 10:47 General appearance: Present: cooperative, A&O X 3, pleasant, no acute distress, obese, answers questions appropriately Exam: Constitutional: Patient is awake, alert, pleasant, engaged to conversation, answers questions appropriately, is in no acute distress, no focal neurological deficits appreciated HEENT: Atraumatic, normocephalic, PERRL, EOMI, trachea midline, no thyromegaly noted, Cardiovascular: rhythm rate regular, no murmurs, gallops, or rubs appreciated. Respiratory: Clear to auscultation bilaterally, no wheezes, rhonchi, rales, or stridor appreciated. Abdomen: Tenderness noted in the right lower quadrant without rebound, no guarding (patient states this is chronic). Abdomen is soft, obese, nondistended, Skin: Warm, dry, intact, no new bruises, rashes, or bleeding appreciated and visualized areas. Psychiatric: Some anxiety, otherwise normal mood and affect Neurological: Patient moving all 4 extremities spontaneously, no overt neurological deficit noted - Head Head exam: Present: atraumatic, normocephalic - Eye Eye exam: Present: EOMI, PERRL. Absent: scleral icterus Pupils: Present: PERRL - Neck Neck exam general surgery: Present: supple, trachea midline. Absent: thyromegaly - Respiratory Respiratory exam: Present: CTAB. Absent: accessory muscle use, decreased breath sounds, prolonged expiratory phase, rales, respiratory distress, rhonchi, stridor, wheezes, tachypnea - Cardiovascular Cardiovascular exam: Present: RRR, +S1, +S2. Absent: gallop, irregular rhythm, rubs, +S3, +S4 - GI/Abdominal GI/Abdominal exam: Present: normal bowel sounds, soft, tenderness. Absent: diminished bowel sounds, distended, firm, guarding, rebound, rigid - Extremities Exam Extremities exam: Present: radial pulses palpable and symmetrical (Radial and dorsalis pedis pulses present and strong) - Neurological Exam Neurological exam: Present: no focal deficits. Absent: facial droop, speech deficit - Psychiatric Psychiatric exam: Present: anxious, normal affect, normal mood - Skin Skin exam: Present: dry, intact, warm - Patient Status Disposition: Home, Self-Care Condition: Fair Functional capacity at discharge: independent ambulation Overall status at discharge: patient is progressing back to baseline - Discharge Instructions Follow Up With: Shivam Pham [Resident] - 11/16/18 4:00 pm ([facility]) - Diet and Activity Activity: increase activity as tolerated Diet: advance to your usual diet <Geraldo Palmer - Last Filed: 11/12/18 18:41> Date of Encounter: 11/12/18 - Discharge Diagnosis (1) Severe sepsis Priority: Secondary Status: Resolved (2) Viral syndrome Priority: Secondary Status: Resolved (3) GE junction carcinoma Status: Chronic (4) Gastroenteritis Status: Acute (5) Abdominal pain Priority: Secondary Status: Acute Qualifiers: Abdominal location: generalized Qualified Code(s): R10.84 - Generalized abdominal pain (6) Influenza A (H1N1) Status: Acute (7) Constipation Status: Acute Qualifiers: Constipation type: slow transit constipation Qualified Code(s): K59.01 - Slow transit constipation (8) Hypokalemia Status: Resolved (9) Tobacco abuse Status: Chronic Hospital course: Ms. Roberts is a 48 year old female - Time Spent with Patient Total time spent providing and/or coordinating discharge services: 37 min Date of admission: 11/08/18 17:43 Primary care physician: PCP NONE Consults: 11/07/18 00:04 Consult to Nutrition [CONS] Routine Comment: Consulting Provider: NUTRITION Reason for Dietary Consult: MST Score 11/08/18 12:45 Consult to Infectious Diseases [CONS] Routine Consulting Provider: Infectious Disease [place] Reason for Consult: Fevers, N/V/D, on Chemotherapy Time Notified: 12:45 Call Completed: Yes - Constitutional Vitals: Temp Pulse Resp BP Pulse Ox 100.2 F H 98 16 101/67 98 11/12/18 10:47 11/12/18 10:47 11/12/18 10:47 11/12/18 10:47 11/12/18 10:47 - Attending Attestation I examined this patient and my medical decision-making was reviewed with the Resident Physician on 11/12/18. I agree with the documented findings, disposition and treatment plan as described except to the extent set forth below. Ms Roberts has been admitted for acute febrile illness and found to have H1N1 influenza. She has been treated with abx for colitis on CT as well as Tamiflu. She was placed on steroids due to wheezing and increased resp distress. Overall she has steadily improved. She still has low grade fever but it is felt due to influenza. She is to be discharged home today. Exam alert Comfortable Mucus membranes dry Heart reg No wheeze today Abd soft and nontender No edema Plan D/C home today Follow up with PCP Complete abx and tamiflu Follow up as scheduled at [facility].
[2018-11-12] MEDS: *HR* LORazepam 1 MG TABLET PO PRN (15:57)
== END 2018-11-12 16:02 | disposition home or self-care (01) | DRG 720 ==
LOC: EMEROOARM 19:56 → 2ANU 19:56 → SUATTDRO 22:49 → 2ANU 23:45
PROVIDERS: ADMIT Family Medicine; ATTEND Internal Medicine

== ENCOUNTER 2019-11-06 22:02 | Observation (INO) ==
[2019-11-06 22:29] LABS: Bilirubin,Urine Small (Negative); Blood,Urine Negative (Negative); Clarity,Urine Cloudy (Clear); Color,Urine Dark Yellow (Yellow); Glucose,Urine (UA) Normal (Normal); Ketones,Urine Negative (Negative); Leukocyte Esterase,Urine Small (Negative); Nitrite,Urine Negative (Negative); Protein,Urine Negative (Neg-Trace); Specific Gravity,Urine 1.023 (1.010-1.025); Urobilinogen,Urine Normal (Normal)
[2019-11-06 22:32] LABS: Bacteria,Urine Few per hpf (None-Few); Hyaline Casts,Urine None Seen per lpf (None-Few); RBC,Urine 0-3 per hpf (0-3); Squamous Epithelial Cell,Urine Many per lpf (None-Few); WBC,Urine 15-30 per hpf (0-3)
[2019-11-06] MEDS ORDERED: Ondansetron 4 MG/2 ML VIAL IVP ONE (22:36)
[2019-11-06] MEDS ORDERED: *HR* HYDROmorphone (PF) 1 MG/ML SYRINGE IVP ONE (22:36)
[2019-11-06] MEDS ORDERED: Isovue-370 500 ML BOTTLE IVP ONE (22:36)
[2019-11-06] MEDS ORDERED: 0.9 % Sodium Chloride 1,000 ML IV ONE (22:36)
[2019-11-06 22:42] LABS: Basophils # 0.1 K/mcL (0.0-0.2); Basophils % 0.9 %; Eosinophils # 0.1 K/mcL (0.0-0.6); Eosinophils % 0.7 %; Hematocrit 33.1 % (35.3-44.9); Hemoglobin 10.6 g/dL (11.5-15.4); Immature Granulocytes % 0.5 % (0-4); Lymphocytes # 1.2 K/mcL (0.6-4.6); Lymphocytes % 11.3 %; Mean Corpuscular Hemoglobin 29.8 pg (28.0-33.3); Mean Platelet Volume 11.5 fL (9.4-12.4); Monocytes # 0.9 K/mcL (0.0-1.3); Monocytes % 8.7 %; Platelet Count 226 K/mcL (140-400); Red Blood Count 3.56 M/mcL (3.82-4.97); Red Cell Distribution Width 15.7 % (11.5-14.5); Segmented Neutrophils % 77.9 %; White Blood Count 10.3 K/mcL (4.3-11.1)
[2019-11-06 22:58] LABS: INR 1.2; Prothrombin Time 13.9 Seconds (9.4-12.1)
[2019-11-06 23:06] LABS: Alanine Aminotransferase 21 Units/L (7-52); Albumin 3.8 g/dL (3.5-5.7); Albumin/Globulin Ratio 0.9 (1.1-2.2); Alkaline Phosphatase 538 Units/L (34-104); Aspartate Amino Transferase 20 Units/L (13-39); BUN/Creatinine Ratio 17 (6-26); Bilirubin,Direct 0.3 mg/dL (0.0-0.2); Bilirubin,Indirect 0.9 mg/dL (0.0-1.0); Bilirubin,Total 1.2 mg/dL (0.3-1.0); Blood Urea Nitrogen 13 mg/dL (6-20); Calcium 9.2 mg/dL (8.6-10.3); Carbon Dioxide 25 mEq/L (23-29); Chloride 101 mEq/L (98-107); Globulin 4.1 g/dL (2.4-3.5); Glucose 125 mg/dL (70-105); Lipase 12 Units/L (11-82); Osmolality,Calculated 284 (280-300); Potassium 3.9 mEq/L (3.5-5.1); Sodium 136 mEq/L (136-145); Total Protein 7.9 g/dL (6.4-8.9); eGFR For African Americans > 60 (> 60); eGFR For Non-African Americans > 60 (> 60)
[2019-11-07] MEDS ORDERED: Pantoprazole 40 MG VIAL IVP ONE (00:11)
[2019-11-07] MEDS ORDERED: Naloxone 0.4 MG/ML INJ IVP PRN (04:27)
[2019-11-07] MEDS ORDERED: Ondansetron ODT 4 MG TAB.RAPDIS SL PRN (04:27)
[2019-11-07 06:07] LABS: Basophils # 0.1 K/mcL (0.0-0.2); Basophils % 0.7 %; Eosinophils # 0.1 K/mcL (0.0-0.6); Eosinophils % 0.6 %; Hematocrit 33.6 % (35.3-44.9); Hemoglobin 10.2 g/dL (11.5-15.4); Immature Granulocytes % 0.5 % (0-4); Lymphocytes # 1.1 K/mcL (0.6-4.6); Lymphocytes % 10.2 %; Mean Corpuscular HGB Conc 30.4 g/dL (31.6-35.5); Mean Corpuscular Hemoglobin 29.7 pg (28.0-33.3); Mean Platelet Volume 11.9 fL (9.4-12.4); Monocytes # 0.9 K/mcL (0.0-1.3); Monocytes % 8.3 %; Neutrophils # 8.5 K/mcL (1.6-8.9); Platelet Count 221 K/mcL (140-400); Red Blood Count 3.43 M/mcL (3.82-4.97); Segmented Neutrophils % 79.7 %; White Blood Count 10.7 K/mcL (4.3-11.1)
[2019-11-07 06:28] LABS: BUN/Creatinine Ratio 14 (6-26); Blood Urea Nitrogen 11 mg/dL (6-20); Calcium 9.2 mg/dL (8.6-10.3); Carbon Dioxide 26 mEq/L (23-29); Chloride 101 mEq/L (98-107); Glucose 126 mg/dL (70-105); Osmolality,Calculated 287 (280-300); Potassium 4.2 mEq/L (3.5-5.1); Sodium 138 mEq/L (136-145); eGFR For African Americans > 60 (> 60); eGFR For Non-African Americans > 60 (> 60)
[2019-11-07] MEDS ORDERED: Acetaminophen IV 500 MG/50 ML INFUS..BTL IVPB ONE (07:15)
[2019-11-07] MEDS ORDERED: Morphine Sulfate Immed Rel 15 MG TABLET PO PRN (10:37)
[2019-11-07] MEDS ORDERED: *HR* LORazepam 1 MG TABLET PO PRN (10:37)
[2019-11-07] MEDS ORDERED: *HR* OxyCODONE Immed Rel 5 MG TABLET PO PRN (10:37)
[2019-11-07] MEDS: 0.9 % Sodium Chloride 1,000 ML IVC SCH (12:14)
[2019-11-07] MEDS: cefTRIAXone 1,000 MG in Water for inj. (sterile) 10 ML IVP SCH (12:15)
[2019-11-07] MEDS: Pantoprazole 40 MG VIAL IVP SCH ×2 (12:15→21:20)
[2019-11-07 17:52] LABS: Hemoglobin 9.7 g/dL (11.5-15.4)
[2019-11-08 03:02] LABS: Hematocrit 27.9 % (35.3-44.9); Hemoglobin 8.9 g/dL (11.5-15.4)
[2019-11-08 03:20] LABS: BUN/Creatinine Ratio 16 (6-26); Blood Urea Nitrogen 11 mg/dL (6-20); Calcium 8.5 mg/dL (8.6-10.3); Carbon Dioxide 23 mEq/L (23-29); Chloride 106 mEq/L (98-107); Glucose 94 mg/dL (70-105); Osmolality,Calculated 281 (280-300); Potassium 3.8 mEq/L (3.5-5.1); Sodium 136 mEq/L (136-145); eGFR For African Americans > 60 (> 60); eGFR For Non-African Americans > 60 (> 60)
[2019-11-08] MEDS: 0.9 % Sodium Chloride 1,000 ML IVC SCH ×2 (07:46→17:52)
[2019-11-08] MEDS: cefTRIAXone 1,000 MG in Water for inj. (sterile) 10 ML IVP SCH (08:12)
[2019-11-08] MEDS: Pantoprazole 40 MG VIAL IVP SCH ×2 (08:13→20:49)
[2019-11-08] MEDS ORDERED: 0.9 % Sodium Chloride 1,000 ML IVC SCH (08:41)
[2019-11-08] MEDS ORDERED: Lidocaine -MPF 2% 2 ML VIAL ONE (12:59)
[2019-11-08] MEDS ORDERED: Propofol 500 MG/50 ML INFUS..BTL ONE (13:00)
[2019-11-08 16:48] LABS: Hematocrit 29.6 % (35.3-44.9); Hemoglobin 9.4 g/dL (11.5-15.4)
[2019-11-08 23:08] LABS: Hematocrit 30.7 % (35.3-44.9); Hemoglobin 9.7 g/dL (11.5-15.4)
[2019-11-09 03:42] LABS: Hematocrit 28.7 % (35.3-44.9)
[2019-11-09 03:54] LABS: Alanine Aminotransferase 16 Units/L (7-52); Albumin 3.3 g/dL (3.5-5.7); Albumin/Globulin Ratio 0.9 (1.1-2.2); Alkaline Phosphatase 506 Units/L (34-104); Aspartate Amino Transferase 19 Units/L (13-39); BUN/Creatinine Ratio 14 (6-26); Bilirubin,Total 0.8 mg/dL (0.3-1.0); Blood Urea Nitrogen 10 mg/dL (6-20); Calcium 8.7 mg/dL (8.6-10.3); Carbon Dioxide 25 mEq/L (23-29); Chloride 104 mEq/L (98-107); Globulin 3.7 g/dL (2.4-3.5); Glucose 139 mg/dL (70-105); Osmolality,Calculated 285 (280-300); Potassium 3.9 mEq/L (3.5-5.1); Sodium 137 mEq/L (136-145); eGFR For African Americans > 60 (> 60); eGFR For Non-African Americans > 60 (> 60)
[2019-11-09 07:22] VITALS: BP 107/65
[2019-11-09] MEDS: cefTRIAXone 1,000 MG in Water for inj. (sterile) 10 ML IVP SCH (10:16)
[2019-11-09] MEDS: Pantoprazole 40 MG VIAL IVP SCH (10:17)
[2019-11-09] MEDS: 0.9 % Sodium Chloride 1,000 ML IVC SCH (10:27)
== END 2019-11-09 11:18 | disposition home or self-care (01) ==
LOC: CDU 22:02 → EMEROOARM 22:02 → CDU 11-07 00:47
PROVIDERS: ADMIT Family Medicine; ATTEND Family Medicine